=== PATIENT | female | born 1950 | race Two or more races ===

== ENCOUNTER 2017-04-10 21:05 | Emergency (ER) | payer MEDICARE, MEDICAID ==
[~2017-04-10] VITALS: Ht 149.9 cm; Wt 45.4 kg
[2017-04-10 21:11] VITALS: BP 132/64
[2017-04-10] MEDS ORDERED: DIATR MEGLU/DIATRIZOATE SODIUM 30 ML BOTTLE (GASTROGRAPHIN) ONE (21:18)
== END 2017-04-10 21:29 | disposition home or self-care (01) ==
LOC: ER 21:06
DX: Z43.1 Encounter for attention to gastrostomy (principal); E03.9 Hypothyroidism, unspecified; D64.9 Anemia, unspecified; E11.9 Type 2 diabetes mellitus without complications
CPT/HCPCS: 74000-TC; A4606; Q9963; Z7610

== ENCOUNTER 2017-09-15 18:09 | Inpatient (IN) | payer MEDICAID, MEDICARE, OTHER ==
[~2017-09-15] VITALS: Ht 162.6 cm; Wt 46.4 kg
--- NOTE | 2017-09-15 18:40 | NUR ---
[facility] FOR POSSIBLE GI BLEED D/T LOW HGB-7.2. PT IS CONFUSED, NOTED WITH TRACH-CUFFED, GT. PT NOTED WITH BILATERAL ARM SCRATCHES, OLD SCABS. PT PLACED ON CONT CARDIAC AND POX MONITORING. ALL NEEDS ARE ATTENDED, KEPT WARM AND COMFORTABLE. PENDING ER MD EVALUATION
[2017-09-15 19:12] LABS: EOSINOPHILS % (AUTO) 7.2 % (0.0-6.0); HEMATOCRIT 24 % (33-45); HEMOGLOBIN 7.9 g/dL (11.5-14.8); LYMPHOCYTES % (AUTO) 11.3 % (20.0-44.0); MEAN CORPUSCULAR HEMOGLOBIN 28 PG (26.0-33.0); MEAN CORPUSCULAR HGB CONC 33 g/dl (31.0-36.0); MEAN CORPUSCULAR VOLUME 85 fL (82-100); MONOCYTES % (AUTO) 8.5 % (2.0-12.0); NEUTROPHILS % (AUTO) 72.6 % (43.0-81.0); PLATELET COUNT (AUTO) 147 /CMM (150-450); RDW COEFFICIENT OF VARIATION 15.8 (11.5-15.0); RED BLOOD CELL COUNT(AUTO) 2.86 MIL/uL (4.0-5.2); WHITE BLOOD COUNT (AUTO) 6.6 K/uL (4.3-11.0)
[2017-09-15 19:13] LABS: BASOPHILS % (AUTO) 0.4 % (0.0-2.0); EOSINOPHILS # (AUTO) 0.5 /CMM (0.0-0.7); LYMPHOCYTES # (AUTO) 0.7 /CMM (0.8-4.8); MONOCYTES # (AUTO) 0.6 /CMM (0.1-1.30); NEUTROPHILS # (AUTO) 4.8 /CMM (1.8-8.9)
[2017-09-15 19:22] LABS: CALCIUM, SERUM 8.1 mg/dL (8.5-10.1); CREATININE 0.5 mg/dL (0.6-1.3); POTASSIUM 5.1 mmol/L (3.5-5.1)
--- NOTE | 2017-09-15 19:23 | NUR ---
REPORT GIVEN DEANNE RAMIREZ
[2017-09-15 19:26] LABS: INR 1.06 (0.87-1.13)
[2017-09-15 19:27] LABS: BILIRUBIN,DIRECT 0.2 mg/dL (0.0-0.2); BILIRUBIN,TOTAL 0.6 mg/dL (0.2-1.0); TOTAL PROTEIN, SERUM 6.4 g/dL (6.4-8.2)
--- NOTE | 2017-09-15 21:15 | NUR ---
GI MD AT BEDSIDE
--- NOTE | 2017-09-15 23:03 | NUR ---
PT IS GOING TO 324-2. CALLING REPORT TO MS.
--- NOTE | 2017-09-15 23:13 | NUR ---
REPORT GIVEN TO ASHLEY HERRERA
--- NOTE | 2017-09-15 23:25 | NUR ---
TELE/RN NOTES RECEIVED PT. FROM ER VIA Caption DataNEY. PT. IS AWAKE, ALERT AND ORIENTED TO SELF. BREATHING EVEN AND UNLABORED ON ROOM AIR. NO SOB, RESPIRATORY DISTRESS OR S/S OF PAIN NOTED AT THIS TIME. PT. HAS A CAPPED TRACH PRESENT AND INTACT. PT. WITH LEFT HAND 20 GAUGE IV SALINE LOCK PRESENT, PATENT AND INTACT. ORIENTED PT. TO ROOM. PLACED EXTERNAL DIESEL POWERPLANT MECHANIC ON PT. CURRENT RHYTHM SINUS RHYTHM HR 83. PT. WITH G-TUBE PRESENT, PATENT AND INTACT. BED LOCKED AND IN LOWEST POSITION, SIDE RAILS UP X3, BED ALARM ON, CALL LIGHT WITHIN REACH. AWAITING ADMISSION ORDERS. WILL CONTINUE TO MONITOR.
[2017-09-16] VITALS (7 sets, daily range): BP systolic 121–141; BP diastolic 50–71
[2017-09-16] MEDS ORDERED: ZOLPIDEM TARTRATE 5 MG TABLET PO PRN
[2017-09-16] MEDS ORDERED: HYDROCODONE/APAP 5/325MG 1 EACH TABLET PO PRN
[2017-09-16] MEDS ORDERED: MAGNESIUM HYDROXIDE 30 ML UDC PO PRN
[2017-09-16] MEDS ORDERED: MAG HYDROX/AL HYDROX/SIMETH 30 ML UDC PO PRN
[2017-09-16] MEDS ORDERED: PANTOPRAZOLE 40 MG VIAL IV SCH
[2017-09-16] MEDS ORDERED: ONDANSETRON HCL/PF 4 MG/2 ML VIAL IVP PRN
[2017-09-16 01:19] LABS: SERUM AMMONIA 126 umol/L (11-32)
[2017-09-16 01:21] LABS: IRON, SERUM 25 ug/dl (50-175); TOTAL IRON BINDING CAPACITY 271 ug/dl (250-450)
[2017-09-16] MEDS ORDERED: PANTOPRAZOLE 40 MG VIAL ONE (01:53)
[2017-09-16] MEDS ORDERED: DEXTROSE 50%-WATER 50 ML DISP.SYRIN IV PRN (02:00)
[2017-09-16] MEDS: IV D5/0.45 NACL 1,000 ML IV PRN ×2 (02:12→17:27)
[2017-09-16] MEDS ORDERED: RIFA550T (03:57)
[2017-09-16] MEDS ORDERED: LEVE1000 GT (03:57)
[2017-09-16] MEDS ORDERED: INSU100V27 SQ (03:57)
[2017-09-16] MEDS ORDERED: MAGN400O21 GT (03:57)
[2017-09-16] MEDS ORDERED: BISA10SU21 RC (03:57)
[2017-09-16] MEDS ORDERED: BACL10TA GT (03:57)
[2017-09-16] MEDS ORDERED: GABA100C GT (03:57)
[2017-09-16] MEDS ORDERED: ASPI-605 PEG (03:57)
[2017-09-16] MEDS ORDERED: IBUP100O18 GT (03:57)
[2017-09-16] MEDS ORDERED: ZONI100C6 GT (03:57)
[2017-09-16] MEDS ORDERED: ALBU2.5V11 (03:57)
[2017-09-16] MEDS ORDERED: LACT10SO PO (03:57)
[2017-09-16] MEDS ORDERED: NA P133E RC (03:57)
[2017-09-16] MEDS ORDERED: INSU100V7 SQ (03:57)
[2017-09-16] MEDS ORDERED: METO25TA6 GT (03:57)
[2017-09-16] MEDS ORDERED: POTA20TA83 GT (03:57)
[2017-09-16] MEDS ORDERED: TRAM50TA2 GT (03:57)
--- NOTE | 2017-09-16 04:40 | NUR ---
TELE/RN NOTES NOTIFIED EPIC PEPPER CUTTER DR. WATSON PT. IS PULLING ON HER G-TUBE, TRACH AND IV ACCESS. PER MD WATSON NEW ORDER: BILATERAL SOFT WRIST RESTRAINTS. WILL CARRY OUT ORDER. WILL CONTINUE TO MONITOR.
[2017-09-16] MEDS: BLOOD SUGAR DIAGNOSTIC 1 EACH STRIP IN SCH ×4 (06:04→23:08)
--- NOTE | 2017-09-16 06:29 | NUR ---
TELE/RN NOTES PT. IS LYING IN BED AWAKE, ALERT AND ORIENTED TO SELF. BREATHING EVEN AND UNLABORED ON ROOM AIR. NO SOB, RESPIRATORY DISTRESS OR S/S OF PAIN NOTED AT THIS TIME. PT. HAS A CAPPED TRACH PRESENT AND INTACT. PT. WITH LEFT HAND 20 GAUGE PERIPHERAL IV PRESENT, PATENT AND INTACT ADMINISTERING TO PT. D5 1/2 NS @ 75 ML/HR. PT. WITH EXTERNAL WEB INTERFACE DEVELOPER CURRENT RHYTHM SINUS RHYTHM HR 85. PT. WITH BILATERAL SOFT WRIST RESTRAINTS PRESENT AND INTACT. PT. WITH G-TUBE PRESENT, PATENT AND INTACT. ALL PT. NEEDS MET. BED LOCKED AND IN LOWEST POSITION, SIDE RAILS UP X3, BED ALARM ON, CALL LIGHT WITHIN REACH. WILL ENDORSE TO DAYSHIFT NURSE FOR CONTINUITY OF CARE.
--- NOTE | 2017-09-16 07:39 | NUR ---
RN OPENING NOTES RECEIVED PATIENT IN BED RESTING, RESPONSIVE. ORIENTED TO SELF ONLY. NO ACUTE DISTRESS, NO SOB NOTED. NO S/S OF PAIN OR DISCOMFORT. TRACH IN PLACE, CAPPED. ON TELEMONITORING SR 80. IV SITE INTACT AND PATENT. GTUBE IN PLACE. BILATERAL WRIST SOFT RESTRAINTS IN PLACE, WILL CHECKED EXTREMITIES EVERY HOUR NEEDED. KEPT PATIENT SAFE AND COMFORTABLE. BED IN LOCKED LOW POSITION, SEMIFOWLERS, SIDERAILS UPX2, CALL LIGHT IN REACH. WILL CONTINUE TO MONITOR ACCORDINGLY.
[2017-09-16] MEDS ORDERED: NA PHOS,M-B/NA PHOS,DI-BA 1 EA ENEMA RC PRN (10:30)
[2017-09-16] MEDS ORDERED: MAGNESIUM HYDROXIDE 30 ML UDC GT SCH (10:30)
[2017-09-16] MEDS ORDERED: BISACODYL SUPP (10 MG) 10 MG/SUPP.RECT SUPP.RECT RC PRN (10:30)
[2017-09-16] MEDS ORDERED: ZOLPIDEM TARTRATE 5 MG TABLET GT PRN (10:48)
[2017-09-16 11:11] LABS: INR 1.13 (0.87-1.13)
[2017-09-16] MEDS ORDERED: INSULIN ASPART/LISPRO 100 UNIT/ML CARTRIDGE SQ PRN (11:30)
[2017-09-16 11:32] LABS: POTASSIUM 3.5 mmol/L (3.5-5.1)
[2017-09-16 11:33] LABS: BILIRUBIN,DIRECT 0.3 mg/dL (0.0-0.2); CREATININE 0.5 mg/dL (0.6-1.3); PHOSPHORUS 2.7 mg/dL (2.5-4.9)
[2017-09-16 11:35] LABS: ALBUMIN 1.9 g/dL (3.4-5.0); CREATINE KINASE MB 3.6 ng/mL (0-3.6); MAGNESIUM 1.8 mg/dL (1.8-2.4)
[2017-09-16 11:36] LABS: THYROID STIMULATING HORMONE 0.626 uIU/mL (0.358-3.74); TOTAL PROTEIN, SERUM 6.1 g/dL (6.4-8.2)
[2017-09-16 12:15] LABS: EOSINOPHILS # (AUTO) 0.3 /CMM (0.0-0.7); HEMATOCRIT 21 % (33-45); LYMPHOCYTES # (AUTO) 0.5 /CMM (0.8-4.8); MONOCYTES # (AUTO) 0.3 /CMM (0.1-1.30); RDW COEFFICIENT OF VARIATION 15.3 (11.5-15.0)
[2017-09-16] MEDS: IBUPROFEN SUSP 100 MG/5 ML UDC GT SCH ×2 (12:19→17:14)
[2017-09-16] MEDS: LACTULOSE 10 G/15 ML UDC (PYXIS) GT SCH ×2 (12:19→22:23)
[2017-09-16] MEDS: ZONISAMIDE 100 MG CAPSULE GT SCH ×2 (12:20→22:23)
[2017-09-16] MEDS: GABAPENTIN 100 MG CAPSULE GT SCH ×3 (12:20→17:10)
[2017-09-16] MEDS: ASPIRIN 81 MG TAB.CHEW GT SCH (12:20)
[2017-09-16] MEDS: BACLOFEN (10 MG) 10 MG TABLET GT SCH ×2 (12:20→17:09)
[2017-09-16] MEDS: TRAMADOL HCL 50 MG TABLET GT SCH ×2 (12:21→22:23)
[2017-09-16 12:24] LABS: BASOPHILS % (AUTO) 0.9 % (0.0-2.0); EOSINOPHILS % (AUTO) 8.1 % (0.0-6.0); HEMOGLOBIN 7.1 g/dL (11.5-14.8); LYMPHOCYTES % (AUTO) 14.4 % (20.0-44.0); MEAN CORPUSCULAR HEMOGLOBIN 28 PG (26.0-33.0); MEAN CORPUSCULAR HGB CONC 33 g/dl (31.0-36.0); MEAN CORPUSCULAR VOLUME 84 fL (82-100); MONOCYTES % (AUTO) 7.9 % (2.0-12.0); NEUTROPHILS # (AUTO) 2.7 /CMM (1.8-8.9); NEUTROPHILS % (AUTO) 68.7 % (43.0-81.0); PLATELET COUNT (AUTO) 131 /CMM (150-450); RED BLOOD CELL COUNT(AUTO) 2.54 MIL/uL (4.0-5.2); WHITE BLOOD COUNT (AUTO) 3.8 K/uL (4.3-11.0)
[2017-09-16] MEDS: METOPROLOL TARTRATE 25 MG TABLET GT SCH ×2 (12:26→17:13)
[2017-09-16] MEDS: ALBUTEROL FS 2.5 MG/3 ML VIAL.NEB IH SCH ×4 (13:00→23:30)
--- NOTE | 2017-09-16 14:04 | NUR ---
RN NOTES VERIFIED WITH DR HORAN DO SCRAPPING FIRST BEFORE ELIMITE CREAM
[2017-09-16] MEDS ORDERED: ANESTHESIA TRAY IN PYXIS 1 EA TRAY MC ONE (15:30)
--- NOTE | 2017-09-16 19:30 | NUR ---
RN CLOSING NOTES NO SIGNIFICANT CHANGE IN PATIENT'S CONDITION. PATIENT IN BED RESTING, RESPONSIVE. NO ACUTE DISTRESS, NO SOB NOTED. NO S/S OF PAIN OR DISCOMFORT. ALL NEEDS ATTENDED AND PROVIDED. KEPT PATIENT SAFE AND COMFORTABLE. RESTRAINTS ON FOR SAFETY, CHECKED EVERY 15MINS AND EVERY 2HRS NEEDED, CIRCULATION WNL. BED IN LOW, LOCKED POSITION, SIDERAILS UPX2, SEMIFOWLERS, CALL LIGHT IN REACH. ENDORSED TO NIGHT RN FOR YUAN.
--- NOTE | 2017-09-16 19:45 | NUR ---
MS RN NOTES RECEIVED ON BED A/O X1,CONFUSED, AT BEDSIDE.WITH TRACH CAPPED.SALINE LOCK OUT.ON BILATERAL SOFT RESTRAINT,TRYING TO PULL OUT TRACH,IV TUBINGS.TRANSFERRED TO ROOM 329,SUSPECTED SCABIES,WITH RASHES NOTED ON BOTH HANDS.ISOLATION PRECAUTION OBSERVED.NPO STATUS.POSSIBLE EGD TOMORROW.
[2017-09-16] MEDS: LEVETIRACETAM SOL (5 ML) 100 MG/ML UDC GT SCH ×2 (22:24→22:30)
[2017-09-16] MEDS ORDERED: SUCRALFATE 1 G/10 ML UDC ONE (22:27)
[2017-09-16] MEDS: SUCRALFATE 1 G/10 ML UDC GT SCH (22:28)
[2017-09-16] MEDS: INSULIN DETEMIR 100 UNIT/ML CARTRIDGE SQ SCH (23:00)
[2017-09-17] MEDS: IBUPROFEN SUSP 100 MG/5 ML UDC GT SCH ×4 (00:33→17:58)
--- NOTE | 2017-09-17 00:42 | NUR ---
MS RN NOTES STILL AWAKE,AMBIEN 5MG /GT GIVEN
[2017-09-17] MEDS: ALBUTEROL FS 2.5 MG/3 ML VIAL.NEB IH SCH ×6 (03:30→23:41)
--- NOTE | 2017-09-17 04:00 | NUR ---
MS RN NOTES SLEEPING,KEPT WARM AND COMFORTABLE.
[2017-09-17] MEDS: LACTULOSE 10 G/15 ML UDC (PYXIS) GT SCH ×3 (05:00→22:11)
[2017-09-17] MEDS: TRAMADOL HCL 50 MG TABLET GT SCH ×3 (05:31→22:12)
[2017-09-17] MEDS: BLOOD SUGAR DIAGNOSTIC 1 EACH STRIP IN SCH ×3 (05:39→18:21)
[2017-09-17] MEDS: INSULIN REGULAR, HUMAN 100 UNIT/ML 3 ML VIAL SQ PRN (05:45)
--- NOTE | 2017-09-17 07:06 | NUR ---
MS RN NOTES NO CHANGE IN STATUS.KEPT ON ISOLATION FOR POSSIBLE SCABIES,AWAITING SCRAPING BY ID.IVF INFUSING,BILATERAL SOFT WRIST RESTRAINTS IN USED.CALL LIGHT IN REACH.WILL ENDORSE TO DAY NURSE FOR YUAN.
[2017-09-17 08:00] VITALS: BP 144/49
--- NOTE | 2017-09-17 08:05 | NUR ---
MS RN OPENING NOTE RECEIVED BEDSIDE SBAR REPORT. PATIENT IS ON CONTACT ISOLATION. BILATERAL SOFT RESTRAINS ON BILATERAL UPPER EXTREMITIES. PATIENT IS ATTEMPTING TO REMOVE THE TRACH AND PULLING OUT THE IV CATHETER. RESTRAINTS ARE CHECKED. FUNCTIONAL ALIGNMENT OF THE LIMBS IS MAINTAINED. A PATIENT IS NON-VERBAL, RESPONSIVE NATALIA TO LIGHT PAIN, DISORIENTED. NO S/S OF PAIN/DISCOMFORT. CHEST IS RISING EQUALLY BILATERALLY. CAPPED TARCH IS PRESENT. PATIENT IS IN BED. BED IS LOCKED, IN LOWEST POSITION, SIDE RAILS UP X3, BED ALARM IS ON. CALL LIGHT WITHIN REACH. PATIENT EDUCATED TO USE THE CALL LIGHT TO CALL FOR ASSISTANCE. ALL NEEDS ARE MET. PATIENT REPOSITIONED FOR COMFORT. WILL ROUND FREQUENTLY TO ASSESS FOR NEEDS. WILL CONTINUE TO ASSESS/MONITOR THROUGHOUT THE SHIFT.
--- NOTE | 2017-09-17 08:15 | NUR ---
SEVERAL MEDICATIONS NOT ADMINISTERED BY THE PREVIOUS SHIFT. DOCUMENTED NON-ADMINISTERED TO RID OF THE RED NON-ADMINISTERED REMINDERS FROM THE EMAR.
--- NOTE | 2017-09-17 08:40 | NUR ---
RT NOTE PATIENT RECEIVED IN STABLE CONDITION WITH TRACH CAP. PATIENT RECEIVED ON ROOM AIR WITH SPO2 AT 97%. NO SIGNS OF RESPIRATORY DISTRESS NOTED. TRACH IS PATENT AND SECURE. AMBU BAG AND BACK UP TRACH AT BEDSIDE. WILL CONTINUE TO MONITOR. Addendum: 09/17/17 at 1404 by RASTA ADDISON RT Amended: Links added.
[2017-09-17] MEDS ORDERED: MAGNESIUM CITRATE 296 ML BOTTLE PO ONE (09:00)
[2017-09-17] MEDS: SUCRALFATE 1 G/10 ML UDC GT SCH ×4 (09:12→22:18)
[2017-09-17] MEDS: LEVETIRACETAM SOL (5 ML) 100 MG/ML UDC GT SCH ×2 (09:12→22:11)
[2017-09-17] MEDS: ASPIRIN 81 MG TAB.CHEW GT SCH (09:13)
[2017-09-17] MEDS: BACLOFEN (10 MG) 10 MG TABLET GT SCH ×2 (09:13→17:58)
[2017-09-17] MEDS: METOPROLOL TARTRATE 25 MG TABLET GT SCH ×2 (09:13→17:58)
[2017-09-17] MEDS: PANTOPRAZOLE 40 MG VIAL IV SCH ×2 (09:13→17:57)
[2017-09-17] MEDS: GABAPENTIN 100 MG CAPSULE GT SCH ×3 (09:13→17:58)
[2017-09-17] MEDS ORDERED: PEG 3350/NA SULF,BICARB,CL/KCL 4,000 ML BOTTLE PO ONE (10:00)
--- NOTE | 2017-09-17 10:59 | NUR ---
INFECTIONS DISEASE NURSE AT THE BEDSIDE. ASSISTING TO SCRAPE THE PATIENT AND TEST FOR SCABIES.
[2017-09-17] MEDS: IV D5/0.45 NACL 1,000 ML IV PRN (12:50)
[2017-09-17] MEDS ORDERED: IVERMECTIN 3 MG TABLET PO ONE (14:30)
[2017-09-17 16:14] VITALS: BP 119/70
--- NOTE | 2017-09-17 17:50 | NUR ---
PATIENT IS REPORTED POSITIVE FOR SCABIES
--- NOTE | 2017-09-17 18:31 | NUR ---
MS RN CLOSING NOTE PATIENT IS ON CONTACT ISOLATION FOR CONFIRMED SCABIES. BILATERAL SOFT RESTRAINS ON BILATERAL UPPER EXTREMITIES. PATIENT IS ATTEMPTING TO REMOVE THE TRACH AND PULLING OUT THE IV CATHETER. RESTRAINTS ARE CHECKED. FUNCTIONAL ALIGNMENT OF THE LIMBS IS MAINTAINED. A PATIENT IS NON-VERBAL, RESPONSIVE NATALIA TO LIGHT PAIN, DISORIENTED. NO S/S OF PAIN/DISCOMFORT. CHEST IS RISING EQUALLY BILATERALLY. CAPPED TARCH IS PRESENT. PATIENT IS IN BED. BED IS LOCKED, IN LOWEST POSITION, SIDE RAILS UP X3, BED ALARM IS ON. CALL LIGHT WITHIN REACH. PATIENT EDUCATED TO USE THE CALL LIGHT TO CALL FOR ASSISTANCE. ALL NEEDS ARE MET. PATIENT REPOSITIONED FOR COMFORT. WILL ENDORSE TO THE TREE TRIMMER FOR YUAN
--- NOTE | 2017-09-17 19:00 | NUR ---
RN OPENING NOTE PATIENT IN BED, AWAKE, ALERT ONLY TO SELF. RECEIVING IV HYDRATION ORDERED, NOTED TO HAVE A CAPPED TRACH AND WITH GTUBE IN PLACE, PATENT AND INTACT. ALL PATIENT'S NEEDS ATTENDED TO AT THIS TIME. SOFT WRIST RESTRAINTS ON THE PATIENT. WILL CONTINUE TO MONITOR.
[2017-09-17 20:00] VITALS: BP 159/66
[2017-09-17] MEDS ORDERED: NA PHOS,M-B/NA PHOS,DI-BA 1 EA ENEMA RC PRN (22:00)
[2017-09-17] MEDS: INSULIN DETEMIR 100 UNIT/ML CARTRIDGE SQ SCH (22:00)
[2017-09-17] MEDS: ZONISAMIDE 100 MG CAPSULE GT SCH (22:18)
[2017-09-18] VITALS (12 sets, daily range): BP systolic 111–169; BP diastolic 42–74
[2017-09-18] MEDS: BLOOD SUGAR DIAGNOSTIC 1 EACH STRIP IN SCH ×4 (01:50→18:47)
[2017-09-18] MEDS: ALBUTEROL FS 2.5 MG/3 ML VIAL.NEB IH SCH ×6 (03:39→23:41)
[2017-09-18] MEDS: LACTULOSE 10 G/15 ML UDC (PYXIS) GT SCH ×3 (05:00→21:50)
[2017-09-18] MEDS: TRAMADOL HCL 50 MG TABLET GT SCH ×3 (05:00→21:52)
[2017-09-18] MEDS: IBUPROFEN SUSP 100 MG/5 ML UDC GT SCH ×4 (06:00→18:43)
[2017-09-18] MEDS: Z GUARD REMEDY 2 OZ OINT TP PRN (06:22)
[2017-09-18] MEDS: IV D5/0.45 NACL 1,000 ML IV PRN (07:03)
--- NOTE | 2017-09-18 07:20 | NUR ---
RN CLOSING NOTES PATIENT CONTINUES TO BE ON SOFT RESTRAINTS ON BILATERAL WRISTS, IN NO ACUTE DISTRESS, NO SOB NOTED, BREATHING EVEN AND UNLABORED, CONTINUES TO RECEIVE IV HYDRATION ORDERED VIA RAC IV PERIPHERAL LINE. WILL GIVE REPORT TO AM NURSE FOR CONTINUITY OF CARE.
[2017-09-18] MEDS: SUCRALFATE 1 G/10 ML UDC GT SCH ×4 (07:30→21:50)
[2017-09-18] MEDS: LEVETIRACETAM SOL (5 ML) 100 MG/ML UDC GT SCH ×2 (09:00→21:50)
[2017-09-18] MEDS: ASPIRIN 81 MG TAB.CHEW GT SCH (09:00)
[2017-09-18] MEDS: GABAPENTIN 100 MG CAPSULE GT SCH ×3 (09:00→16:47)
[2017-09-18] MEDS: BACLOFEN (10 MG) 10 MG TABLET GT SCH ×2 (09:00→16:45)
[2017-09-18] MEDS ORDERED: CLONIDINE HCL 0.1MG/24H PTWK 1 EA PATCH TD SCH (09:00)
[2017-09-18] MEDS: METOPROLOL TARTRATE 25 MG TABLET GT SCH ×2 (09:00→16:45)
[2017-09-18] MEDS: PANTOPRAZOLE 40 MG VIAL IV SCH ×2 (09:28→16:40)
[2017-09-18] MEDS ORDERED: PERMETHRIN 5% CRM 60 GM TUBE TP ONE (10:30)
--- NOTE | 2017-09-18 10:54 | NUR ---
WOUND CARE CONSULT: PT BEING PREPPED FOR EGD AT THIS TIME. PER NURSING DOCUMENTATION PT HAS SACRAL SCARRING(SEEN IN ADMISSION PHOTO) AND INCONTINENCE WITH PERINEAL EXCORIATION, PRESENT ON ADMISSION. PT NOTED TO BE SCRATCHING HER SKIN PER NURSING STAFF. ALL SKIN PROTECTION MEASURES IN PLACE AND DISCUSSED WITH NURSING STAFF. LOW AIRLOSS BED TO BE PLACED (AMY ISOFLEX). Z GUARD IN USE. IN AGREEMENT WITH PLAN OF CARE. Addendum: 09/18/17 at 1059 by JOSE VEGA WNDNU CORRECTION: PT HAVING COLONOSCOPY PREP AT THIS TIME.
[2017-09-18 12:23] LABS: BASOPHILS % (AUTO) 0.6 % (0.0-2.0); EOSINOPHILS # (AUTO) 0.2 /CMM (0.0-0.7); EOSINOPHILS % (AUTO) 6.5 % (0.0-6.0); HEMATOCRIT 21 % (33-45); LYMPHOCYTES # (AUTO) 0.6 /CMM (0.8-4.8); LYMPHOCYTES % (AUTO) 18.3 % (20.0-44.0); MEAN CORPUSCULAR HEMOGLOBIN 27 PG (26.0-33.0); MEAN CORPUSCULAR HGB CONC 33 g/dl (31.0-36.0); MEAN CORPUSCULAR VOLUME 83 fL (82-100); MONOCYTES # (AUTO) 0.3 /CMM (0.1-1.30); MONOCYTES % (AUTO) 9.2 % (2.0-12.0); NEUTROPHILS # (AUTO) 2.2 /CMM (1.8-8.9); NEUTROPHILS % (AUTO) 65.4 % (43.0-81.0); PLATELET COUNT (AUTO) 119 /CMM (150-450); RDW COEFFICIENT OF VARIATION 16.6 (11.5-15.0); RED BLOOD CELL COUNT(AUTO) 2.47 MIL/uL (4.0-5.2); WHITE BLOOD COUNT (AUTO) 3.4 K/uL (4.3-11.0)
[2017-09-18 12:35] LABS: HEMOGLOBIN 6.7 g/dL (11.5-14.8)
[2017-09-18 14:15] LABS: BAND % (MANUAL) 2 % (0.0-5.0); EOSINOPHILS % (MANUAL) 2 % (0-4); LYMPHOCYTES % (MANUAL) 22 % (16-48); MONOCYTES % (MANUAL) 2 % (0-11.0); NEUTROPHILS % (MANUAL) 72 (42-76)
--- NOTE | 2017-09-18 19:20 | NUR ---
RN OPENING NOTES RECEIVED PT IN BED, AWAKE, ALERT TO SELF, SOFT WRIST RESTRAINTS IN PLACE, BED PLACED IN LOW POSITION AND LOCKED IN PLACE. PATIENT RECEIVING GTUBE FEEDING ORDERED, TOLERATING WELL AT THIS TIME. PT HAS IV PERIPHERAL LINE ON RAC G#20, INTACT AND PATENT. ALL PATIENT'S NEEDS ATTENDED TO AT THIS TIME. BED PLACED IN LOW POSITION. WILL CONTINUE TO MONITOR.
[2017-09-18] MEDS: GLYTROL 1,000 ML BAG GT PRN (19:23)
--- NOTE | 2017-09-18 19:40 | NUR ---
RN NOTES: PATIENT RESTING IN BED. NONLABORED BREATHING NOTED ON ROOM AIR, CLOSED TRACH, NO FACIAL GRIMACING NOTED. IV SITE ON RIGHT FA PATENT AND INTACT. PATIENT RESUMED ON TUBE FEEDINGS, JUST RESTARTED AT 40 ML/HOUR TO CHECK TOLERABILITY. IV FLUIDS TO BE DISCONTINUED ONCE PATIENT ABLE TO TOLERATE FEEDING. PER VLADIMIR MARCANO, COMPENSATION AND BENEFITS ADMINISTRATOR, PATIENT TO RESUME FEEDING WITH GLYTROL AT 60ML/HOUR WITH IV FLUIDS TO BE DISCONTINUED ONCE FEEDING TOLERATED. PER DR CERON, COLONOSCOPY AND EGD NOT PERFORMED TODAY TILL PATIENT IS TO BE TREATED WITH EMILITE. PER DR HORAN TO BE GIVEN AT NIGHT. SPOKE WITH JOSE D, PHARMACY. PER DR HORAN, PATIENT TO RECEIVE 1 UNIT PRBC, BLOOD WAS PICKED UP FROM PHARMACY AT 1750, HOWEVER, UNABLE TO SCAN THE RED BLOOD BANK ID, LAB NOTIFIED AND BLOOD RETURNED AT 1810, PER SOC, BLOOD TO BE PICKED UP AT 2000, NEXT SHIFT NOTIFIED. CLONIDINE HELD IN THE MORNING DUE TO DECREASED BP, RESTRAINTS REORDERED PER DR HORAN, PATIENT CHANGED AND TURNED Q 2 HOURS, PROVIDED WITH CARE, NEEDS ATTENDED, NO SIGNS OF DISTRESS ENDORSED TO NEXT SHIFT
--- NOTE | 2017-09-18 20:17 | NUR ---
RN NOTE PT STARTED ON BLOOD TRANSFUSION, AFEBRILE WITH STABLE VITAL SIGNS. WILL CONTINUE TO MONITOR.
[2017-09-18] MEDS: ZONISAMIDE 100 MG CAPSULE GT SCH (21:50)
[2017-09-18] MEDS: INSULIN DETEMIR 100 UNIT/ML CARTRIDGE SQ SCH (22:42)
--- NOTE | 2017-09-18 23:20 | NUR ---
RN NOTE BLOOD TRANSFUSION COMPLETED. PATIENT AFEBRILE WITH STABLE VITAL SIGNS, NO HIVES, NO SOB NOTED. WILL CONTINUE TO MONITOR.
[2017-09-19] MEDS: IBUPROFEN SUSP 100 MG/5 ML UDC GT SCH ×4 (00:19→18:11)
[2017-09-19] MEDS: BLOOD SUGAR DIAGNOSTIC 1 EACH STRIP IN SCH ×4 (00:54→18:17)
[2017-09-19] MEDS: INSULIN REGULAR, HUMAN 100 UNIT/ML 3 ML VIAL SQ PRN ×2 (01:09→06:10)
[2017-09-19 01:23] LABS: BASOPHILS % (AUTO) 0.9 % (0.0-2.0); EOSINOPHILS # (AUTO) 0.2 /CMM (0.0-0.7); EOSINOPHILS % (AUTO) 4.9 % (0.0-6.0); HEMATOCRIT 28 % (33-45); HEMOGLOBIN 9.2 g/dL (11.5-14.8); LYMPHOCYTES # (AUTO) 0.6 /CMM (0.8-4.8); LYMPHOCYTES % (AUTO) 13.6 % (20.0-44.0); MEAN CORPUSCULAR HEMOGLOBIN 28 PG (26.0-33.0); MEAN CORPUSCULAR HGB CONC 33 g/dl (31.0-36.0); MEAN CORPUSCULAR VOLUME 84 fL (82-100); MONOCYTES # (AUTO) 0.5 /CMM (0.1-1.30); MONOCYTES % (AUTO) 12.2 % (2.0-12.0); NEUTROPHILS # (AUTO) 2.9 /CMM (1.8-8.9); NEUTROPHILS % (AUTO) 68.4 % (43.0-81.0); PLATELET COUNT (AUTO) 124 /CMM (150-450); RDW COEFFICIENT OF VARIATION 15.4 (11.5-15.0); RED BLOOD CELL COUNT(AUTO) 3.28 MIL/uL (4.0-5.2); WHITE BLOOD COUNT (AUTO) 4.2 K/uL (4.3-11.0)
[2017-09-19] MEDS: ALBUTEROL FS 2.5 MG/3 ML VIAL.NEB IH SCH ×5 (03:51→19:49)
--- NOTE | 2017-09-19 04:10 | NUR ---
RN NOTE PATIENT TOLERATING G-TUBE FEEDING WELL, NO EPISODE OF NAUSEA/VOMITING NOTED AT THIS TIME. RECEIVED NEW ORDER TO D/C PREVIOUS IV HYDRATION ORDER. ALL ORDERS NOTED AND CARRIED OUT. WILL CONTINUE TO MONITOR PATIENT.
[2017-09-19] MEDS: TRAMADOL HCL 50 MG TABLET GT SCH ×3 (04:33→22:33)
[2017-09-19] MEDS: LACTULOSE 10 G/15 ML UDC (PYXIS) GT SCH ×3 (04:34→21:00)
--- NOTE | 2017-09-19 07:20 | NUR ---
RN NOTES; PATIENT RESTING IN BED,CAPPED TRACH, WITH NONLABORED BREATHING ON ROOM AIR. IV ON RIGHT FOREARM PATENT AND INTACT. BED IN LOWEST LOCKED POSITION.CALL LIGHT WITHIN REACH. WILL CONTINUE TO MONITOR. NO FACIAL GRIMACING NOTED
--- NOTE | 2017-09-19 07:25 | NUR ---
RN CLOSING NOTE PATIENT IN BED, ALERT TO SELF, CONTINUES TO RECEIVE G-TUBE FEEDING ORDERED AND TOLERATING WELL. BILATERAL SOFT WRIST RESTRAINTS ON PATIENT, BED PLACED IN LOW POSITION AND LOCKED IN PLACE. ALL PATIENT'S NEEDS ATTENDED TO AT THIS TIME. WILL ENDORSE TO MORNING SHIFT NURSE FOR CONTINUITY OF CARE.
[2017-09-19 08:00] VITALS: BP 158/74
--- NOTE | 2017-09-19 08:20 | NUR ---
RN NOTES: SPOKE TO BETTY FROM PHARMACY REGARDING MOTRIN RESTOCKING IN OMNICELL. MOTRIN NOT ADMINISTERED AT 0600 DUE TO LACK OF MOTRIN IN OMNICELL
[2017-09-19] MEDS: SUCRALFATE 1 G/10 ML UDC GT SCH ×4 (08:40→22:34)
[2017-09-19] MEDS: LEVETIRACETAM SOL (5 ML) 100 MG/ML UDC GT SCH ×2 (08:40→22:33)
[2017-09-19] MEDS: GABAPENTIN 100 MG CAPSULE GT SCH ×3 (08:41→16:55)
[2017-09-19] MEDS: BACLOFEN (10 MG) 10 MG TABLET GT SCH ×2 (08:41→16:56)
[2017-09-19] MEDS: METOPROLOL TARTRATE 25 MG TABLET GT SCH ×2 (08:42→16:55)
[2017-09-19] MEDS: PANTOPRAZOLE 40 MG VIAL IV SCH ×2 (08:46→17:04)
[2017-09-19] MEDS: ASPIRIN 81 MG TAB.CHEW GT SCH (09:00)
--- NOTE | 2017-09-19 10:57 | NUR ---
RN NOTES: DR HORAN INFORMED THAT PATIENT IS ON BACK ON TUBE FEEDING PER ORDERS, TAKING MEDICATIONS PER GTUBE. HE ORDERED TO DISCONTINUE CLONIDINE PATCH
[2017-09-19 16:00] VITALS: BP 153/65
[2017-09-19] MEDS: GLYTROL 1,000 ML BAG GT PRN (17:03)
--- NOTE | 2017-09-19 19:30 | NUR ---
RN NOTES RECEIVED PT. AWAKE, CONFUSED, ON BILATERAL SOFT WRIST RESTRAINTS, CIRCULATION ON BILATERAL UPPER EXTREMITIES ARE GOOD, G-TUBE FEEDING , GLYTROL @ 60ML/HR, NO RESIDUAL NOTED, SIDERAILSUPX2, CONTINUE TO MONITOR
[2017-09-19 20:00] VITALS: BP 155/65
[2017-09-19] MEDS: ZONISAMIDE 100 MG CAPSULE GT SCH (22:34)
[2017-09-19] MEDS: INSULIN DETEMIR 100 UNIT/ML CARTRIDGE SQ SCH (22:44)
--- NOTE | 2017-09-20 | NUR ---
RN NOTES MOTRIN 600MG SUSPENSION WAS NOT GIVEN, DRUG IS NOT AVAILABLE EVEN IN THE NITE LOCKER
[2017-09-20] MEDS: BLOOD SUGAR DIAGNOSTIC 1 EACH STRIP IN SCH ×5 (00:09→23:43)
[2017-09-20] MEDS: INSULIN REGULAR, HUMAN 100 UNIT/ML 3 ML VIAL SQ PRN ×3 (00:15→12:50)
[2017-09-20] MEDS: ALBUTEROL FS 2.5 MG/3 ML VIAL.NEB IH SCH ×6 (01:21→20:30)
[2017-09-20] MEDS: TRAMADOL HCL 50 MG TABLET GT SCH ×3 (05:18→22:12)
[2017-09-20] MEDS: LACTULOSE 10 G/15 ML UDC (PYXIS) GT SCH ×3 (05:18→22:11)
[2017-09-20] MEDS: IBUPROFEN SUSP 100 MG/5 ML UDC GT SCH ×5 (05:18→23:53)
--- NOTE | 2017-09-20 06:29 | NUR ---
RN NOTES AWAKE , MORNING CARE RENDERED, G-TUBE FEEDING RUNNING- NO RESIDUAL NOTED, CALL LIGHT WITHIN REACH, SIDERAILSUPX2 PT. NEEDS ATTENDED
[2017-09-20 08:00] VITALS: BP 168/94
--- NOTE | 2017-09-20 08:00 | NUR ---
RN NOTES' RECEIVED PATENT IN THE BED ISOLATION OF SCABIES. PATIENT CONFUSED, ON TRACHEA , NO RESPIRATORY DISTRESS, V/S TAKEN STABLE . GLYTROL 60 ML/HR G-TUBE FEEDING. NO RESIDUAL, PLACEMENT CHECKED, MEDICATION ADMINISTERED VIA G-TUBE, PATIENT ON SOFT WRIST RESTRAIN CHECKED CIRCULATION, PATIENT INCOMITANT ASSIST TURN ANS REPOSITION Q 2 HR, IV LINE ON RIGHT AC AREA INTACT , CALL LIGHT WITHIN TO REACH, SAFETY PRECAUTION MAINTAINED ALL THE TIME.
[2017-09-20] MEDS: LEVETIRACETAM SOL (5 ML) 100 MG/ML UDC GT SCH ×2 (09:03→22:11)
[2017-09-20] MEDS: SUCRALFATE 1 G/10 ML UDC GT SCH ×4 (09:03→22:11)
[2017-09-20] MEDS: GABAPENTIN 100 MG CAPSULE GT SCH ×3 (09:03→18:16)
[2017-09-20] MEDS: ASPIRIN 81 MG TAB.CHEW GT SCH (09:03)
[2017-09-20] MEDS: METOPROLOL TARTRATE 25 MG TABLET GT SCH ×2 (09:04→18:17)
[2017-09-20] MEDS: PANTOPRAZOLE 40 MG VIAL IV SCH ×2 (09:04→18:16)
[2017-09-20] MEDS: BACLOFEN (10 MG) 10 MG TABLET GT SCH ×2 (09:04→18:16)
--- NOTE | 2017-09-20 12:00 | NUR ---
RN NOTES BS-150 MG/DL, COVERAGE GIVEN, NEXT TO THE BED, SCHEDULED MEDICATION ADMINISTERED. CALL LIGHT WITHIN TO REACH, CONTINUED MONITORING.
[2017-09-20] MEDS: GLYTROL 1,000 ML BAG GT PRN (13:08)
[2017-09-20 16:00] VITALS: BP 153/53
--- NOTE | 2017-09-20 16:00 | NUR ---
RN NOTES PATIENT IN THE BED, NO ACUTE RESPIRATORY DISTRESS, ASSIST TURN AND REPOSITION, CALL LIGHT WITHIN TO REACH, CONTINUED MONITORING.
--- NOTE | 2017-09-20 17:00 | NUR ---
RN NOTES PATIENT REFUSED IV ACCESS, MRSA OF NARES SWAB TAKEN, CALLED LAB FOR FACILITY MAINTENANCE SUPERVISOR. PATIENT LYING IN THE BED, NO ACUTE DISTRESS, NO RESPIRATORY DISTRESS, CALL LIGHT WITHIN TO REACH, SAFETY PRECAUTION MAINTAINED ALL THE TIME. Addendum: 09/20/17 at 2041 by JASPAL FERNANDEZ RN RN NOTES ABOVE NOTES A WRONG PATIENT EATERY.
--- NOTE | 2017-09-20 18:00 | NUR ---
RN NOTES BS-79 MG/DL NO COVERAGE GIVEN, SCHEDULED MEDICATION ADMINISTERED VIA G-TUBE, V/S TAKEN STABLE, ASSIST TURN AND REPOSITION Q2 HR, CALL LIGHT WITHIN TO REACH, SAFETY PRECAUTION MAINTAINED ALL THE TIME, PATIENT HAS A SOFT WRIST RESTRAIN, CHECKED FOR CIRCULATION Q 2 HR, CONTINUED MONITORING.
--- NOTE | 2017-09-20 18:30 | NUR ---
RN NOTES PATIENT STABLE AT THIS TIME, ENDORSED ONCOMING NURSE FOR CONTINUATION OF CARE.
--- NOTE | 2017-09-20 19:40 | NUR ---
RN INITIAL NOTES RECEIVED PT LAYING IN BED WITH HOB ELEVATED. ON ISOLATION FOR SCABIES, CONTACT PRECAUTIONS TAKEN. AWAKE AND RESPONSIVE. RESPIRATIONS ARE EVEN AND UNLABORED, NOT IN ANY ACUTE DISTRESS NOTED. CURRENTLY HAS A CAPPED TRACH. NO FACIAL GRIMACING OR MOANING NOTED. GT INTACT, NO RESIDUAL NOTED. FLUSED GT WITH 300CC OF WATER AND IS PATENT. CURRENTLY ON SOFT WRIST RESTRAINTS, NO SKIN INJURIES NOTED. RIGHT FOREARM IV NOTED TO BE INFILTRATED. WILL CONTINUE TO MONITOR PT THROUGHOUT SHIFT FOR CONTINUITY OF CARE. REMINDED PT TO USE CALL LIGHT WHEN ASSISTANCE IS NEEDED, CALL LIGHT IS LEFT WITHN REACH.
[2017-09-20 20:00] VITALS: BP 118/52
[2017-09-20 22:00] VITALS: BP 130/64
--- NOTE | 2017-09-20 22:05 | NUR ---
RN NOTES GOT AN ORDER FOR MIDLINE INSERTION-ORDER NOTED AND CARRIED OUT
[2017-09-20] MEDS: ZONISAMIDE 100 MG CAPSULE GT SCH (22:12)
[2017-09-20] MEDS: INSULIN DETEMIR 100 UNIT/ML CARTRIDGE SQ SCH (22:33)
[2017-09-21] MEDS: ALBUTEROL FS 2.5 MG/3 ML VIAL.NEB IH SCH ×7 (00:13→23:47)
[2017-09-21] MEDS: BLOOD SUGAR DIAGNOSTIC 1 EACH STRIP IN SCH ×3 (05:07→17:01)
[2017-09-21] MEDS: IBUPROFEN SUSP 100 MG/5 ML UDC GT SCH ×3 (05:07→17:02)
[2017-09-21] MEDS: LACTULOSE 10 G/15 ML UDC (PYXIS) GT SCH ×3 (05:07→21:59)
[2017-09-21] MEDS: TRAMADOL HCL 50 MG TABLET GT SCH ×3 (05:07→21:58)
[2017-09-21] MEDS: INSULIN REGULAR, HUMAN 100 UNIT/ML 3 ML VIAL SQ PRN ×2 (05:48→22:11)
--- NOTE | 2017-09-21 06:51 | NUR ---
RN CLOSING NOTES ALL DUE MEDS GIVEN, NEEDS MET AND RENDERED. PT IS RESPONSIVE. RESPIRATIONS ARE EVEN AND UNLABORED, NOT IN ANY ACUTE DISTRESS NOTED. PT HAS A CAPPED TRACH AND TOLERATING WELL. CURRENTLY ON CONTACT ISOLATION FOR SCABIES. AJ MIDLINE PLACED THIS AM, INTACT AND PATENT. DRESSING KEPT CLEAN AND DRY. NO FACIAL GRIMACING OR MOANING NOTED. PT CURRENTLY ON TF AND TOLERATING WELL WITH NO RESIDUAL. NO S/SX OF HYPO/HYPERGLYCEMIA NOTED. WILL ENDORSE TO NEXT SHIFT FOR CONTINUITY OF CARE.
--- NOTE | 2017-09-21 07:20 | NUR ---
RN NOTES PT IS LAYING DOWN IN BED, RESTING. PT ON RA, RESPIRATIONS ARE EVEN AND UNLABORED. AJ MIDLINE IS INTACT AND SL. G-TUBE IS IN PLACE AND RUNNING GLYTROL @ 60ML/HR. SOFT WRIST RESTRAINTS ARE IN PLACE, NO IRRITATION NOTED. SAFETY MEASURES ARE IN PLACE, CALL LIGHT IS IN REACH. WILL CONTINUE TO MONITOR.
[2017-09-21 08:00] VITALS: BP 131/51
[2017-09-21] MEDS: ASPIRIN 81 MG TAB.CHEW GT SCH (08:14)
[2017-09-21] MEDS: BACLOFEN (10 MG) 10 MG TABLET GT SCH ×2 (08:14→16:51)
[2017-09-21] MEDS: METOPROLOL TARTRATE 25 MG TABLET GT SCH ×2 (08:14→16:51)
[2017-09-21] MEDS: GABAPENTIN 100 MG CAPSULE GT SCH ×3 (08:14→16:51)
[2017-09-21] MEDS: LEVETIRACETAM SOL (5 ML) 100 MG/ML UDC GT SCH ×2 (08:14→21:59)
[2017-09-21] MEDS: SUCRALFATE 1 G/10 ML UDC GT SCH ×4 (08:14→21:59)
[2017-09-21] MEDS: PANTOPRAZOLE 40 MG VIAL IV SCH ×2 (08:14→16:51)
[2017-09-21] MEDS: GLYTROL 1,000 ML BAG GT PRN (11:04)
[2017-09-21 16:00] VITALS: BP 140/62
--- NOTE | 2017-09-21 19:23 | NUR ---
RN OPENING NOTES PT RESTING IN BED. PT CONFUSED. PT RESTING IN BED. NO APPARENT S/S OF PAIN, DISTRESS, OR SOB AT THIS TIME. PT HAS A RIGHT UPPER ARM MIDLINE IV, INTACT AND PATENT. PT HAS GTUBE FEEDING GLYTROL @60ML/HR, PT TOLERATING WELL. SAFETY PRECAUTIONS IN PLACE, BED IN LOW, LOCKED POSITION, X3 SIDERAILS UP. CALL LIGHT WITHIN REACH. WILL CONTINUE TO MONITOR.
[2017-09-21 20:00] VITALS: BP 149/57
[2017-09-21] MEDS: ZONISAMIDE 100 MG CAPSULE GT SCH (21:58)
[2017-09-21] MEDS: INSULIN DETEMIR 100 UNIT/ML CARTRIDGE SQ SCH (22:10)
[2017-09-22] MEDS: BLOOD SUGAR DIAGNOSTIC 1 EACH STRIP IN SCH ×4 (01:02→17:13)
[2017-09-22] MEDS: IBUPROFEN SUSP 100 MG/5 ML UDC GT SCH ×4 (01:02→17:13)
[2017-09-22] MEDS: INSULIN REGULAR, HUMAN 100 UNIT/ML 3 ML VIAL SQ PRN ×2 (01:21→05:41)
[2017-09-22] MEDS: ALBUTEROL FS 2.5 MG/3 ML VIAL.NEB IH SCH ×5 (02:58→19:30)
[2017-09-22] MEDS: LACTULOSE 10 G/15 ML UDC (PYXIS) GT SCH ×3 (05:24→20:52)
[2017-09-22] MEDS: TRAMADOL HCL 50 MG TABLET GT SCH ×3 (05:25→20:52)
--- NOTE | 2017-09-22 06:46 | NUR ---
RN CLOSING NOTES PT RESTING IN BED. PT CONFUSED [place] SPEAKER. NO APPARENT S/S OF PAIN, DISTRESS, OR SOB AT THIS TIME. PT HAS BILATERAL SOFT WRIST RESTRAINTS. PT HAS AJ MIDLINE #18 INTACT AND PATENT. PT HAS GTUBE FEEDING GLYTROL @60ML/HR, PT TOLERATING WELL. SAFETY PRECAUTIONS IN PLACE. WILL ENDORSE TO DAY SHIFT NURSE FOR CONTINUITY OF CARE.
[2017-09-22] MEDS: GLYTROL 1,000 ML BAG GT PRN (06:57)
[2017-09-22 08:00] VITALS: BP 149/58
--- NOTE | 2017-09-22 08:24 | NUR ---
MS RN: OPENING NOTE RECEIVED PT A/OX1. ON CONTACT ISOLATION FOR SCABIES. TREATMENT ALREADY DONE. ON CAPPED TRACH. INCONTINENT. ON DIAPER. BEDREST. ON SOFT WRIST RESTRAINTS. CHECKED ORDERED. ON GLYTROL FEEDING AT 60ML/HR FROM G-TUBE. SITE CLEAR AND PATENT. AJ MIDLINE #18. HL. NO IV FLUIDS RUNNING. NO AM LABS. SCHEDULED FOR ENDOSCOPY/ COLONOSCOPY 09/23/17. RESTING COMFORTABLY IN BED. CALL LIGHT WITHIN REACH.
[2017-09-22] MEDS: METOPROLOL TARTRATE 25 MG TABLET GT SCH ×2 (09:25→17:00)
[2017-09-22] MEDS: BACLOFEN (10 MG) 10 MG TABLET GT SCH ×2 (09:25→16:00)
[2017-09-22] MEDS: GABAPENTIN 100 MG CAPSULE GT SCH ×3 (09:25→16:00)
[2017-09-22] MEDS: SUCRALFATE 1 G/10 ML UDC GT SCH ×4 (09:25→22:00)
[2017-09-22] MEDS: PANTOPRAZOLE 40 MG VIAL IV SCH ×2 (09:25→16:00)
[2017-09-22] MEDS: ASPIRIN 81 MG TAB.CHEW GT SCH (09:25)
[2017-09-22] MEDS: LEVETIRACETAM SOL (5 ML) 100 MG/ML UDC GT SCH ×2 (09:25→20:52)
[2017-09-22] MEDS ORDERED: NA PHOS,M-B/NA PHOS,DI-BA 1 EA ENEMA RC PRN (11:00)
[2017-09-22] MEDS ORDERED: MAGNESIUM CITRATE 296 ML BOTTLE PO ONE ×2 (11:00→14:00)
[2017-09-22] MEDS ORDERED: PEG 3350/NA SULF,BICARB,CL/KCL 4,000 ML BOTTLE PO ONE (11:00)
[2017-09-22] MEDS: IV D5/ 0.9% NACL 1,000 ML IV SCH (11:31)
[2017-09-22 12:27] LABS: BASOPHILS % (AUTO) 0.6 % (0.0-2.0); EOSINOPHILS # (AUTO) 0.3 /CMM (0.0-0.7); EOSINOPHILS % (AUTO) 7.1 % (0.0-6.0); HEMATOCRIT 28 % (33-45); HEMOGLOBIN 9.3 g/dL (11.5-14.8); LYMPHOCYTES # (AUTO) 0.4 /CMM (0.8-4.8); MEAN CORPUSCULAR HEMOGLOBIN 28 PG (26.0-33.0); MEAN CORPUSCULAR HGB CONC 33 g/dl (31.0-36.0); MEAN CORPUSCULAR VOLUME 84 fL (82-100); MONOCYTES # (AUTO) 0.5 /CMM (0.1-1.30); MONOCYTES % (AUTO) 9.5 % (2.0-12.0); NEUTROPHILS # (AUTO) 3.5 /CMM (1.8-8.9); NEUTROPHILS % (AUTO) 73.8 % (43.0-81.0); PLATELET COUNT (AUTO) 102 /CMM (150-450); RDW COEFFICIENT OF VARIATION 16.4 (11.5-15.0); RED BLOOD CELL COUNT(AUTO) 3.36 MIL/uL (4.0-5.2); WHITE BLOOD COUNT (AUTO) 4.8 K/uL (4.3-11.0)
[2017-09-22 12:33] LABS: ALBUMIN 1.9 g/dL (3.4-5.0); BILIRUBIN,TOTAL 0.8 mg/dL (0.2-1.0); CALCIUM, SERUM 8.2 mg/dL (8.5-10.1); CREATININE 0.5 mg/dL (0.6-1.3); POTASSIUM 3.2 mmol/L (3.5-5.1); TOTAL PROTEIN, SERUM 6.3 g/dL (6.4-8.2)
--- NOTE | 2017-09-22 13:42 | NUR ---
MAG CITRATE NEEDED TO BE REENTERED BY PHARMACY DUE TO AWAITING ARRIVAL.
[2017-09-22] MEDS ORDERED: IV NS 0.9% 500 ML IV ONE (14:30)
--- NOTE | 2017-09-22 14:35 | NUR ---
STOPPED G-TUBE FEEDING. NPO WITH MEDICATIONS PER MD ESQUIVEL ORDER. STARTED ADMINSITERING MAG CITRATE AND GOLYTELY FOR SCHDULED EGD AND COLONOSCOPY.
[2017-09-22] MEDS: POTASSIUM CL. PREMIX PERIPHER. 50 ML IV SCH ×4 (14:59→18:00)
[2017-09-22 16:00] VITALS: BP 112/50
--- NOTE | 2017-09-22 18:39 | NUR ---
MS RN: CLOSING NOTE PT GIVEN ALL MEDICATIONS VIA G-TUBE. A/OX1. NO ADVERSE REACTIONS NOTED. NO SOB NOTED. NO PAIN NOTED. ON CAPPED TRACH ROOM AIR. INCONTINENT. ON PREP GOLYTELY AND MAG CITRATE FOR SCHEDULED EDG AND COLONOSCOPY 09/23/17. CONSENT SIGNED. NPO. G-TUBE FEEDING STOPPED WHEN PREP STARTED. ON SOFT BLE RESTRAINTS. TAKEN OFF AND CLEANED ORDERED. AJ MIDLINE RUNNING D5 NS AT 75ML/HR. SITE CLEAR. NO REDNESS OR BLEEDING NOTED. INSULIN GIVEN PER SLIDING SCALE. ON CONTACT ISOLATION FOR SCABIES. KEPT CLEAN AND DRY. TURNED AND REPOSITIONED Q2 HOURS. RESTING COMFORTABLY IN BED. CALL LIGHT WITHIN REACH.
--- NOTE | 2017-09-22 19:25 | NUR ---
RN OPENING NOTE PT RESTING IN BED. PT IS [place] SPEAKER. PT IS CONFUSED. NO APPARENT S/S OF PAIN OR DISTRESS NOTED AT THIS TIME. PT HAS A RIGHT UPPER ARM MIDLINE RUNNING D5 NS AT 75ML/HR. PT TOLERATING FLUID WELL. PER DAY SHIFT NURSE PT IS PREPPING FOR SCHEDULED EGD AND COLONOSCOPY 09/23/17. PT GTUBE FEEDING HAS BEEN STOPPED AND PT IS ON GOLYTELY AND MAG CITRATE. SAFETY PRECAUTIONS IN PLACE. BED IN LOW, LOCKED POSITION. [id number] UP. PT IS HAS BILATERAL SOFT WRIST RESTRAINTS. WILL CONTINUE TO MONITOR.
[2017-09-22 20:45] VITALS: BP 133/66
[2017-09-22] MEDS: INSULIN DETEMIR 100 UNIT/ML CARTRIDGE SQ SCH (22:00)
[2017-09-22] MEDS: ZONISAMIDE 100 MG CAPSULE GT SCH (22:00)
[2017-09-23] MEDS: ALBUTEROL FS 2.5 MG/3 ML VIAL.NEB IH SCH ×6 (00:20→20:42)
[2017-09-23] MEDS: BLOOD SUGAR DIAGNOSTIC 1 EACH STRIP IN SCH ×5 (00:46→23:26)
[2017-09-23] MEDS: IV D5/ 0.9% NACL 1,000 ML IV SCH ×2 (00:47→13:32)
[2017-09-23] MEDS: LACTULOSE 10 G/15 ML UDC (PYXIS) GT SCH ×3 (04:41→21:04)
[2017-09-23] MEDS: TRAMADOL HCL 50 MG TABLET GT SCH ×3 (04:41→21:04)
[2017-09-23] MEDS: IBUPROFEN SUSP 100 MG/5 ML UDC GT SCH ×5 (05:01→23:27)
--- NOTE | 2017-09-23 06:57 | NUR ---
RN CLOSING NOTE PT RESTING IN BED. PT IS [place] SPEAKER. PT IS CONFUSED. NO APPARENT S/S OF PAIN OR DISTRESS NOTED AT THIS TIME. PT HAS A RIGHT UPPER ARM MIDLINE RUNNING D5 NS AT 75ML/HR. PT TOLERATING FLUID WELL. PER DAY SHIFT NURSE PT IS PREPPING FOR SCHEDULED EGD AND COLONOSCOPY 09/23/17 AT 1PM. MEDS HAVE BEEN HELD DUE TO PROCEDURE. SAFETY PRECAUTIONS IN PLACE. BED IN LOW, LOCKED POSITION. [id number] UP. PT IS HAS BILATERAL SOFT WRIST RESTRAINTS. WILL ENDORSE TO DAY SHIFT NURSE FOR CONTINUITY OF CARE.
[2017-09-23] MEDS: SUCRALFATE 1 G/10 ML UDC GT SCH ×4 (07:30→21:04)
--- NOTE | 2017-09-23 07:40 | NUR ---
RN OPENING NOTES RECEIVED PT. A/OX1, PT IS CONFUSED. NO S/S OF RESPIRATORY DISTRESS OR SOB. PT DOES NOT APPEAR TO BE IN PAIN AT THIS MOMENT. TRACH PRESENT AND PLUGGED, NO VENT SUPPORT. SOFT WRIST RESTRAINTS PRESENT, DUE TO PT'S FREQUENT ATTEMPTS TO PULL LINES. PT IS TO HAVE EGD TODAY AT [address] ALCALA. CONSENTS SIGNED AND FILED IN CHART. PT IS NPO, GT FEEDING STOPPED. SAFETY MEASURES IN PLACE, CALL LIGHT WITHIN REACH. WILL CONTINUE TO MONITOR.
[2017-09-23 07:44] LABS: BASOPHILS % (AUTO) 0.3 % (0.0-2.0); EOSINOPHILS % (AUTO) 0.6 % (0.0-6.0); HEMATOCRIT 25 % (33-45); HEMOGLOBIN 8.2 g/dL (11.5-14.8); LYMPHOCYTES # (AUTO) 0.4 /CMM (0.8-4.8); LYMPHOCYTES % (AUTO) 9.2 % (20.0-44.0); MEAN CORPUSCULAR HEMOGLOBIN 28 PG (26.0-33.0); MEAN CORPUSCULAR HGB CONC 34 g/dl (31.0-36.0); MEAN CORPUSCULAR VOLUME 83 fL (82-100); MONOCYTES # (AUTO) 0.4 /CMM (0.1-1.30); MONOCYTES % (AUTO) 9.9 % (2.0-12.0); NEUTROPHILS # (AUTO) 3.4 /CMM (1.8-8.9); PLATELET COUNT (AUTO) 100 /CMM (150-450); RDW COEFFICIENT OF VARIATION 16.6 (11.5-15.0); RED BLOOD CELL COUNT(AUTO) 2.97 MIL/uL (4.0-5.2); WHITE BLOOD COUNT (AUTO) 4.2 K/uL (4.3-11.0)
[2017-09-23 08:00] VITALS: BP 159/68
[2017-09-23 08:00] LABS: CALCIUM, SERUM 7.6 mg/dL (8.5-10.1); CREATININE 0.5 mg/dL (0.6-1.3); POTASSIUM 3.9 mmol/L (3.5-5.1)
[2017-09-23] MEDS: PANTOPRAZOLE 40 MG VIAL IV SCH ×2 (08:16→16:59)
[2017-09-23] MEDS: LEVETIRACETAM SOL (5 ML) 100 MG/ML UDC GT SCH ×2 (09:00→21:04)
[2017-09-23] MEDS: METOPROLOL TARTRATE 25 MG TABLET GT SCH ×2 (09:00→17:17)
[2017-09-23] MEDS: GABAPENTIN 100 MG CAPSULE GT SCH ×3 (09:00→16:59)
[2017-09-23] MEDS: ASPIRIN 81 MG TAB.CHEW GT SCH (09:00)
[2017-09-23] MEDS: BACLOFEN (10 MG) 10 MG TABLET GT SCH ×2 (09:00→16:59)
--- NOTE | 2017-09-23 09:30 | NUR ---
RN NOTES AM PO MEDICATIONS HELD DUE TO NPO STATUS.
--- NOTE | 2017-09-23 11:30 | NUR ---
RN NOTES PT TAKEN TO OR FOR EGD/COLONOSCOPY.
--- NOTE | 2017-09-23 14:00 | NUR ---
RN NOTES PT RETURNED FROM OR. VSS, BREATHING EVEN AND UNLABORED. PT APPEARS SLEEPY/LETHARGIC. POST-OP ORDERS RECEIVED, FAXED TO PHARMACY, AND PLACED IN CHART. NOON MEDICATIONS HELD DUE TO PT'S ABSENCE FROM UNIT. NOON ACCU CHECK FOUND BS OF 167, NO COVERAGE GIVEN HOWEVER DUE TO HALT OF GT FEEDING. GT FEEDING TO RESUME AT 1700. WILL CONTINUE TO MONITOR.
[2017-09-23 16:00] VITALS: BP 141/62
[2017-09-23] MEDS: INSULIN REGULAR, HUMAN 100 UNIT/ML 3 ML VIAL SQ PRN ×2 (17:28→23:33)
--- NOTE | 2017-09-23 19:26 | NUR ---
RN CLOSING NOTES PT IN BED RESTING, AT BEDSIDE. NO S/S OF RESPIRATORY DISTRESS OR SOB. PT DOES NOT APPEAR TO BE IN PAIN. PT IS S/P EGD EARLIER TODAY 09/23/17. POST OP ORDERS SIGNED, PLACED IN CHART AND FAXED TO PHARMACY. ALL PT NEEDS ANTICIPATED AND MET. SAFETY MEASURES IN PLACE, CALL LIGHT WITHIN REACH. WILL ENDORSE TO BOILER INSPECTOR FOR YUAN.
--- NOTE | 2017-09-23 19:50 | NUR ---
MS RN INITIAL NOTE S PT IS IN BED AWAKE, CONFUSED. NO SIGNS OF SOB OR DISTRESS. BREATHING EVENLY AND UNLABORED ON RA. TRACH IS CAPPED, NO VENT SUPPORT. BILATERAL WRIST RESTRAINTS PRESENT, WILL FOLLOW PROTOCOL. BED IS IN LOW AND LOCKED POSITION. WILL CONTINUE TO MONITOR PT
[2017-09-23 20:49] VITALS: BP 150/62
[2017-09-23] MEDS: ZONISAMIDE 100 MG CAPSULE GT SCH (21:04)
[2017-09-23] MEDS: INSULIN DETEMIR 100 UNIT/ML CARTRIDGE SQ SCH (21:09)
[2017-09-24] MEDS: ALBUTEROL FS 2.5 MG/3 ML VIAL.NEB IH SCH ×6 (00:29→20:26)
[2017-09-24] MEDS: IV D5/ 0.9% NACL 1,000 ML IV SCH ×2 (02:33→17:21)
[2017-09-24] MEDS: TRAMADOL HCL 50 MG TABLET GT SCH ×3 (04:16→23:04)
[2017-09-24] MEDS: LACTULOSE 10 G/15 ML UDC (PYXIS) GT SCH ×3 (04:16→23:04)
[2017-09-24] MEDS: GLYTROL 1,000 ML BAG GT PRN (04:20)
--- NOTE | 2017-09-24 05:00 | NUR ---
ORAL CARE COMPLETED USING ORAL CARE SUCTION KIT
[2017-09-24] MEDS: IBUPROFEN SUSP 100 MG/5 ML UDC GT SCH ×3 (05:01→17:23)
[2017-09-24] MEDS: BLOOD SUGAR DIAGNOSTIC 1 EACH STRIP IN SCH ×4 (05:01→23:13)
[2017-09-24] MEDS: INSULIN REGULAR, HUMAN 100 UNIT/ML 3 ML VIAL SQ PRN ×4 (05:12→23:11)
--- NOTE | 2017-09-24 06:47 | NUR ---
MS RN CLOSING NOTES PT IS IN BED AWAKE AND CONFUSED. NO SIGNS OF SOB OR DISTRESS, BREATHING EVENLY AND UNLABORED ON RA. ORAL CARE RENDERED. BILATERAL SOFT RESTRAINTS IN PLACE. GTUBE INTACT AND FEEDING AT 60 ML, TOLERATING WELL. IV ACCESS IS INTACT AND PATENT, INFUSING. ALL NEEDS WERE ANTICIPATED AND MET. BED IS IN LOW AND LOCKED POSITION, HEAD OF BED ELEVATED. WILL ENDORSE TO DAY SHIFT
[2017-09-24 08:00] VITALS: BP 142/110
--- NOTE | 2017-09-24 08:00 | NUR ---
MS RN OPENING NOTES PATIENT COMFORTABLY IN BED AWAKE AND CONFUSED. NO SOB NOTED.NO ACUTE DISTRESS NOTED, BREATHING EVENLY AND UNLABORED.IN ACCESS PATENT AND INTACT. BILATERAL SOFT RESTRAINTS IN PLACE. GTUBE INTACT AND FEEDING AT 60 ML, TOLERATING WELL. BED IS IN LOW AND LOCKED POSITION, HOB ELEVATED. CALL LIGHT WITHIN REACH. WILL CONTINUE TO MONITOR ACCORDINGLY.
[2017-09-24] MEDS: SUCRALFATE 1 G/10 ML UDC GT SCH ×4 (08:30→23:03)
[2017-09-24] MEDS: GABAPENTIN 100 MG CAPSULE GT SCH ×3 (08:31→17:22)
[2017-09-24] MEDS: BACLOFEN (10 MG) 10 MG TABLET GT SCH ×2 (08:31→17:23)
[2017-09-24] MEDS: ASPIRIN 81 MG TAB.CHEW GT SCH (08:31)
[2017-09-24] MEDS: LEVETIRACETAM SOL (5 ML) 100 MG/ML UDC GT SCH ×2 (08:31→23:03)
[2017-09-24] MEDS: PANTOPRAZOLE 40 MG VIAL IV SCH ×2 (08:31→17:22)
[2017-09-24] MEDS: METOPROLOL TARTRATE 25 MG TABLET GT SCH ×2 (08:34→17:23)
[2017-09-24] MEDS: Z GUARD REMEDY 2 OZ OINT TP PRN (12:26)
[2017-09-24 16:00] VITALS: BP 139/86
--- NOTE | 2017-09-24 18:30 | NUR ---
MS RN CLOSING NOTES PATIENT COMFORTABLY IN BED EYES CLOSED AND CONFUSED, AROUSABLE. NO ACUTE DISTRESS NOTED. NO SOB NOTED. BREATHING UNLABORED.IN ACCESS PATENT AND INTACT. BILATERAL SOFT RESTRAINTS IN PLACE. GTUBE INTACT AND FEEDING AT 60 ML, TOLERATING WELL. BED IS IN LOW AND LOCKED POSITION, HOB ELEVATED. DUE MEDICATIONS GIVEN, NO ASE NOTED. NEEDS ATTENDED. CALL LIGHT WITHIN REACH. WILL ENDORSE TO [facility]GE FOR CONTINUITY OF CARE.
--- NOTE | 2017-09-24 19:40 | NUR ---
MS/RN RECEIVE PATIENT AWAKE, NON VERBAL, TRACH CAPPED, APPEAR COMFORTABLE, NO SIGNS OF DISTRESS NOTED, PATIENT CLEANED AND REPOSITIONED TO COMFORT.
[2017-09-24 20:20] VITALS: BP 140/65
[2017-09-24] MEDS: ZONISAMIDE 100 MG CAPSULE GT SCH (23:03)
[2017-09-24] MEDS: INSULIN DETEMIR 100 UNIT/ML CARTRIDGE SQ SCH (23:10)
[2017-09-25] MEDS: GLYTROL 1,000 ML BAG GT PRN ×2 (00:21→21:03)
[2017-09-25] MEDS: IBUPROFEN SUSP 100 MG/5 ML UDC GT SCH ×4 (00:21→17:18)
[2017-09-25] MEDS: ALBUTEROL FS 2.5 MG/3 ML VIAL.NEB IH SCH ×6 (00:27→21:15)
[2017-09-25] MEDS: INSULIN REGULAR, HUMAN 100 UNIT/ML 3 ML VIAL SQ PRN ×4 (05:55→23:00)
--- NOTE | 2017-09-25 06:00 | NUR ---
MS/RN STILL SLEEPING, COMFORTABLE, NO DISTRESS NOTED, ALL NEEDS ATTENDED AT THIS TIME. WILL CONTINUE TO MONITOR. MOTRIN NOT ADMINISTERED AT THIS TIME THERE IS NOT ENOUGH STOCK IN THE OMNICELL, WILL ENDORSE.
[2017-09-25] MEDS: IV D5/ 0.9% NACL 1,000 ML IV SCH ×2 (06:03→21:06)
[2017-09-25] MEDS: LACTULOSE 10 G/15 ML UDC (PYXIS) GT SCH ×3 (06:04→21:04)
[2017-09-25] MEDS: TRAMADOL HCL 50 MG TABLET GT SCH ×3 (06:04→21:04)
[2017-09-25] MEDS: BLOOD SUGAR DIAGNOSTIC 1 EACH STRIP IN SCH ×4 (06:12→23:06)
--- NOTE | 2017-09-25 07:00 | NUR ---
MS/RN ENDORSED TO NEXT RN TO GIVE THE MOTRIN.
[2017-09-25 08:00] VITALS: BP 141/76
--- NOTE | 2017-09-25 08:00 | NUR ---
MS RN OPENING NOTES PT COMFORTABLY IN BED EYES OPEN ,CONFUSED. NO SOB NOTED.NO ACUTE DISTRESS NOTED, BREATHING UNLABORED.IN ACCESS INTACT, INFUSING D5NS @75ML/HR. BILATERAL SOFT RESTRAINTS IN PLACE. GTUBE INTACT AND FEEDING AT 60 ML, TOLERATING WELL. SAFE MEASURES IN PLACE. HOB ELEVATED. CALL LIGHT WITHIN REACH. WILL CONTINUE TO MONITOR ACCORDINGLY
[2017-09-25] MEDS: SUCRALFATE 1 G/10 ML UDC GT SCH ×4 (08:39→21:04)
[2017-09-25] MEDS: LEVETIRACETAM SOL (5 ML) 100 MG/ML UDC GT SCH ×2 (08:40→21:04)
[2017-09-25] MEDS: GABAPENTIN 100 MG CAPSULE GT SCH ×3 (08:40→17:19)
[2017-09-25] MEDS: PANTOPRAZOLE 40 MG VIAL IV SCH ×2 (08:40→17:18)
[2017-09-25] MEDS: BACLOFEN (10 MG) 10 MG TABLET GT SCH ×2 (08:40→17:19)
[2017-09-25] MEDS: METOPROLOL TARTRATE 25 MG TABLET GT SCH ×2 (08:41→17:19)
[2017-09-25] MEDS: ASPIRIN 81 MG TAB.CHEW GT SCH (08:41)
[2017-09-25 12:00] VITALS: BP 140/68
[2017-09-25 16:00] VITALS: BP 152/71
--- NOTE | 2017-09-25 18:30 | NUR ---
MS RN OPENING NOTES PT IN BED EYES OPEN ,CONFUSED.RESPONSIVE TO VERBAL AND TACTILE STIMULI. NO ACUTE DISTRESS NOTED, BREATHING UNLABORED. IV ACCESS INTACT, INFUSING D5NS @75ML/HR. BILATERAL SOFT RESTRAINTS IN PLACE, CHECKED WITH GOOD CIRCULATION EVERY 2 HOURS .GTUBE INTACT AND FEEDING AT 60 ML, TOLERATING WELL. DUE MEDICATIONS GIVEN , NO ASE NOTED. REPOSITION ORDERED. SAFE MEASURES IN PLACE. HOB ELEVATED. KEPT COMFORTABLE. NEEDS ATTENDED. CALL LIGHT WITHIN REACH. WILL CONTINUE TO MONITOR ACCORDINGLY. ENDORSED TO STREET LIGHT CLEANER FOR CONTINUITY OF CARE.
--- NOTE | 2017-09-25 19:30 | NUR ---
MS/RN RECEIVE PATIENT, AWAKE, NON VERBAL, APPEAR COMFORTABLE, NO DISTRESS NOTED, HOB ELEVATED, GT FEEDING INFUSING, NO RESIDUAL NOTE, WILL MONITOR.
[2017-09-25 20:00] VITALS: BP 136/54
[2017-09-25] MEDS: ZONISAMIDE 100 MG CAPSULE GT SCH (21:03)
[2017-09-25] MEDS: INSULIN DETEMIR 100 UNIT/ML CARTRIDGE SQ SCH (22:59)
[2017-09-26] MEDS: ALBUTEROL FS 2.5 MG/3 ML VIAL.NEB IH SCH ×7 (00:10→22:57)
[2017-09-26] MEDS: IBUPROFEN SUSP 100 MG/5 ML UDC GT SCH ×5 (01:05→23:52)
--- NOTE | 2017-09-26 05:16 | NUR ---
RT NOTE RECEIVED PATIENT ON ROOM AIR. PATIENT IS TRACHED WITH SEWAGE TREATMENT PLANT OPERATOR. NO SOB NOTED. TX GIVEN, NO ADVERSE REACTIONS NOTED. SUCTION DONE, SMALL THICK YELLOW WHITE SECRETIONS NOTED. PATIENT STABLE T/O SHIFT.
--- NOTE | 2017-09-26 06:30 | NUR ---
MS/RN PATIENT SLEEPING, AROUSABLE, COMFORTABLE, ALL NEEDS ATTENDED AT THIS TIME. WILL CONTINUE TO MONITOR.
[2017-09-26] MEDS: BLOOD SUGAR DIAGNOSTIC 1 EACH STRIP IN SCH ×4 (06:48→23:58)
[2017-09-26] MEDS: TRAMADOL HCL 50 MG TABLET GT SCH ×3 (06:49→20:38)
[2017-09-26] MEDS: SUCRALFATE 1 G/10 ML UDC GT SCH ×4 (06:49→22:23)
[2017-09-26] MEDS: INSULIN REGULAR, HUMAN 100 UNIT/ML 3 ML VIAL SQ PRN ×3 (07:00→18:52)
[2017-09-26] MEDS: LACTULOSE 10 G/15 ML UDC (PYXIS) GT SCH ×3 (07:38→20:39)
--- NOTE | 2017-09-26 07:41 | NUR ---
RN NOTES RECEIVED PATIENT RESTING COMFORTABLY IN BED, EASILY AROUSABLE DURING CARE, NONVERBAL. RESPIRATIONS EVEN AND UNLABORED, IN NO APPARENT PAIN OR DISCOMFORT AT THIS TIME. PATIENT WITH TRACH SHILEY #[address] IV ACCESS TO AJ PATENT AND INTACT NO REDNESS OR INFILTRATION NOTED. PATIENT ON G TUBE FEEDING TOLERATED WELL. SAFETY MEASURES IN PLACE WILL CONTINUE TO MONITOR
[2017-09-26 08:00] VITALS: BP 169/75
[2017-09-26] MEDS: LEVETIRACETAM SOL (5 ML) 100 MG/ML UDC GT SCH ×2 (09:11→20:39)
[2017-09-26] MEDS: ASPIRIN 81 MG TAB.CHEW GT SCH (09:11)
[2017-09-26] MEDS: METOPROLOL TARTRATE 25 MG TABLET GT SCH ×2 (09:12→16:25)
[2017-09-26] MEDS: PANTOPRAZOLE 40 MG VIAL IV SCH ×2 (09:12→16:23)
[2017-09-26] MEDS: BACLOFEN (10 MG) 10 MG TABLET GT SCH ×2 (09:12→16:23)
[2017-09-26] MEDS: GABAPENTIN 100 MG CAPSULE GT SCH ×3 (09:12→16:23)
[2017-09-26] MEDS: IV D5/ 0.9% NACL 1,000 ML IV SCH ×2 (12:37→22:22)
[2017-09-26 16:00] VITALS: BP 157/70
[2017-09-26] MEDS: GLYTROL 1,000 ML BAG GT PRN (16:25)
--- NOTE | 2017-09-26 19:30 | NUR ---
RN OPENING NOTES PATIENT IS SLEEPING IN BED, EASY TO AROUSE, NON VERBAL. VS STABLE. NO SOB NOTED. RESPIRATIONS EVEN AND UNLABORED. NO PAIN OR DISCOMFORT NOTED AT THIS TIME. PATIENT WITH TRACH SHILEY #[address] IV ACCESS TO AJ PATENT AND INTACT, NO REDNESS OR INFILTRATION NOTED. GLYTROL IS RUNNING AT 60 ML/HR. BED IN LOW AND LOCKED POSITION, SIDE RAILSX2. CALL LIGHT WITHIN EASY REACH. WILL CONTINUE TO MONITOR AND ASSESS DURING THE SHIFT.
--- NOTE | 2017-09-26 19:35 | NUR ---
RN NOTES PATIENT RESTING COMFORTABLY IN BED, EASILY AROUSABLE DURING CARE, NONVERBAL. RESPIRATIONS EVEN AND UNLABORED, IN NO APPARENT PAIN OR DISCOMFORT AT THIS TIME. PATIENT WITH TRACH SHILEY #[address] IV ACCESS TO AJ PATENT AND INTACT NO REDNESS OR INFILTRATION NOTED. PATIENT ON G TUBE FEEDING TOLERATED WELL. SAFETY MEASURES IN PLACE ENDORSED TO NEXT SHIFT FOR CONTINUITY OF CARE
[2017-09-26 20:00] VITALS: BP 129/49
[2017-09-26] MEDS: ZONISAMIDE 100 MG CAPSULE GT SCH (22:24)
[2017-09-26] MEDS: INSULIN DETEMIR 100 UNIT/ML CARTRIDGE SQ SCH (22:30)
[2017-09-27] MEDS: INSULIN REGULAR, HUMAN 100 UNIT/ML 3 ML VIAL SQ PRN ×4 (00:01→17:42)
[2017-09-27] MEDS: ALBUTEROL FS 2.5 MG/3 ML VIAL.NEB IH SCH ×6 (03:25→22:42)
--- NOTE | 2017-09-27 03:45 | NUR ---
MS/WIG COMBER; RECEIVED PT REPORTS FROM ASHLEY CARPIO FOR CONTINUITY OF CARE. PT IS NON VERBAL. WITH TRACH WITH REDCAP, GT FEEDING ON PROGRESS NO RESIDUAL WITH BILATERAL SOFT WRIST RESTRAINTS ON. ON CONTACT ISOLATION.
[2017-09-27] MEDS: LACTULOSE 10 G/15 ML UDC (PYXIS) GT SCH ×3 (05:06→21:59)
[2017-09-27] MEDS: TRAMADOL HCL 50 MG TABLET GT SCH ×3 (05:07→21:59)
[2017-09-27] MEDS: IBUPROFEN SUSP 100 MG/5 ML UDC GT SCH ×3 (06:00→17:03)
--- NOTE | 2017-09-27 06:30 | NUR ---
MS/SMALL BRAKE FORM OPERATOR; MOTRIN SUSP. 600MG GT Q6 NOT GIVEN . I FAXED THE ORDER TO NURSING SENIOR GRADUATE ADVISOR AND SHE SAID TO ENDORSE TO THE DAY IT TO THE DAY SHIFT.
[2017-09-27] MEDS: BLOOD SUGAR DIAGNOSTIC 1 EACH STRIP IN SCH ×3 (07:00→17:37)
--- NOTE | 2017-09-27 07:00 | NUR ---
MS/INSPECTOR PLUMBING; BS 210 COVERED WITH REGULAR INSULIN 4 UNITS SQ. IVF ON PROGRESS. WILL ENDORSE TO THE DAY SHIFT . ON CONTACT ISOLATION OBSERVED.
--- NOTE | 2017-09-27 07:15 | NUR ---
RN NOTES PT IS LAYING DOWN IN BED, RESTING COMFORTABLY. PT ON RA, RESPIRATIONS ARE EVEN AND UNLABORED. AJ MIDLINE IS INTACT AND RUNNING D5NS @ 75ML/HR. G-TUBE IS INTACT AND RUNNING GLYTROL @ 60ML/HR. SOFT WRIST RESTRAINTS ARE ON, NO SIGNS OF IRRITATION ON WRISTS. SAFETY MEASURES ARE IN PLACE. WILL CONTINUE TO MONITOR.
[2017-09-27 08:00] VITALS: BP 162/74
[2017-09-27] MEDS: ASPIRIN 81 MG TAB.CHEW GT SCH (08:13)
[2017-09-27] MEDS: GABAPENTIN 100 MG CAPSULE GT SCH ×3 (08:13→17:03)
[2017-09-27] MEDS: BACLOFEN (10 MG) 10 MG TABLET GT SCH ×2 (08:13→17:03)
[2017-09-27] MEDS: LEVETIRACETAM SOL (5 ML) 100 MG/ML UDC GT SCH ×2 (08:13→21:58)
[2017-09-27] MEDS: PANTOPRAZOLE 40 MG VIAL IV SCH ×2 (08:13→17:02)
[2017-09-27] MEDS: SUCRALFATE 1 G/10 ML UDC GT SCH ×4 (08:13→21:59)
[2017-09-27] MEDS: METOPROLOL TARTRATE 25 MG TABLET GT SCH ×2 (08:14→17:04)
[2017-09-27] MEDS: ACETAMINOPHEN 325 MG TABLET PO PRN (08:18)
[2017-09-27] MEDS: GLYTROL 1,000 ML BAG GT PRN (10:33)
[2017-09-27] MEDS: IV D5/ 0.9% NACL 1,000 ML IV PRN (12:09)
[2017-09-27 16:00] VITALS: BP 168/78
--- NOTE | 2017-09-27 18:35 | NUR ---
RN NOTES PT IS LAYING DOWN IN BED, RESTING COMFORTABLY, NO SIGNS OF DISTRESS NOTED. AJ MIDLINE INTACT AND RUNNING D5NS @ 75ML/HR. GLYTROL FEEDING RUNNING THROUGH G-TUBE AT 60ML/HR, NO RESIDUAL. SOFT WRIST RESTRAINTS IN PLACE. ALL MEDS WERE GIVEN ORDERED. 1800 ACCUCHECK 259, 6 UNITS GIVEN. PT KEPT CLEAN AND DRY, BREATHING TREATMENTS GIVEN ORDERED. SAFETY MEASURES ARE IN PLACE, CALL LIGHT IS IN REACH. WILL ENDORSE TO PAN OPERATOR RN FOR CONTINUITY OF CARE.
--- NOTE | 2017-09-27 19:20 | NUR ---
MS/RN OPENING NOTES PT RECEIVED WITH EYES CLOSED. OPENS EYES WITH LIGHT TOUCH. TRACH IS CAPPED. ON ROOM AIR, BREATHING RIKI NAND UNLABORED. IN NO APPARENT DISTRESS. BILATERAL SOFT WRIST RESTRAINTS IN PLACE, EXTREMITIES NOTED WITH GOOD CIRCULATION. AJ MIDLINE PATENT AND INTACT RUNNING IVF ORDERED. GT FEEDING RUNNING GLYTROL ORDERED. BED IN LOW/LOCKED POSITION WITH CALL LIGHT IN REACH. SIDE RAILS UPX3 WITH BED ALARM ON FOR SAFETY. WILL CONTINUE TO MONITOR.
[2017-09-27 20:00] VITALS: BP 146/68
[2017-09-27] MEDS: ZONISAMIDE 100 MG CAPSULE GT SCH (21:59)
[2017-09-27] MEDS: INSULIN DETEMIR 100 UNIT/ML CARTRIDGE SQ SCH (22:07)
[2017-09-28] MEDS: IBUPROFEN SUSP 100 MG/5 ML UDC GT SCH ×4 (00:40→17:41)
[2017-09-28] MEDS: BLOOD SUGAR DIAGNOSTIC 1 EACH STRIP IN SCH ×4 (00:40→17:42)
[2017-09-28] MEDS: INSULIN REGULAR, HUMAN 100 UNIT/ML 3 ML VIAL SQ PRN ×4 (00:50→17:44)
[2017-09-28] MEDS: ALBUTEROL FS 2.5 MG/3 ML VIAL.NEB IH SCH ×6 (03:15→23:35)
[2017-09-28] MEDS: LACTULOSE 10 G/15 ML UDC (PYXIS) GT SCH ×3 (05:00→21:47)
[2017-09-28] MEDS: GLYTROL 1,000 ML BAG GT PRN (05:41)
[2017-09-28] MEDS: TRAMADOL HCL 50 MG TABLET GT SCH ×3 (05:42→21:30)
[2017-09-28] MEDS: IV D5/ 0.9% NACL 1,000 ML IV PRN ×2 (06:25→21:32)
[2017-09-28] MEDS: SUCRALFATE 1 G/10 ML UDC GT SCH ×4 (06:32→21:30)
--- NOTE | 2017-09-28 07:35 | NUR ---
MS/RN CLOSING NOTES PT WITH EYES CLOSED. AROUSABLE. OPENS EYES BUT NONVERBAL. ON ROOM AIR, BREATHING EVEN AND UNLABORED. NO S/S OF PAIN AT THIS TIME. IN NO APPARENT DISTRESS. TRACH REMAINS CAPPED. AJ MIDLINE PATENT AND INTACT RUNNING IVF ORDERED. KEPT PT CLEAN AND DRY. TURNED AND REPOSITIONED Q2H. PT REMAINS IN BILATERAL SOFT WRIST RESTRAINTS. GOOD EXTREMITY CIRCULATION NOTED. RELEASE OR RESTRAINTS PRN. GT FEEDING RUNNING GLYTROL ORDERED. NO RESIDUALS NOTED. BED IN LOW/LOCKED POSITION WITH CALL LIGHT IN REACH. SIDE RAILS UPX2. ISOLATION PRECAUTIONS IMPLEMENTED. ENDORSED TO DAY SHIFT RN YUAN.
[2017-09-28 08:00] VITALS: BP 153/86
--- NOTE | 2017-09-28 08:00 | NUR ---
MS RN NOTES PATIENT RECEIVED RESTING INSIDE ROOM, AWAKE, ALERT, AROUSABLE THROUGH VERBAL AND TACTILE STIMULI., WOULD RESPOND WHEN TOUCHED OR TALKED TO THEN WOULD GO BACK TO SLEEP AFTER A FEW MINUTES NO SOB OR CONGESTION NOTED. NO FACIAL GRIMACE OR ANY INDICATION OF PAIN NOTED. GT IN PLACE, NO BLEEDING OR IRRITATION NOTED ON GT SITE. IV MIDLINE ON RIGHT UPPER ARM. NO BLEEDING, NO SWELLING, NO IRRITATION ON SITE. WILL CONTINUE TO MONITOR.
[2017-09-28] MEDS: BACLOFEN (10 MG) 10 MG TABLET GT SCH ×2 (09:27→17:42)
[2017-09-28] MEDS: ASPIRIN 81 MG TAB.CHEW GT SCH (09:27)
[2017-09-28] MEDS: GABAPENTIN 100 MG CAPSULE GT SCH ×3 (09:27→17:42)
[2017-09-28] MEDS: METOPROLOL TARTRATE 25 MG TABLET GT SCH ×2 (09:27→17:42)
[2017-09-28] MEDS: PANTOPRAZOLE 40 MG VIAL IV SCH ×2 (09:28→17:41)
[2017-09-28] MEDS: LEVETIRACETAM SOL (5 ML) 100 MG/ML UDC GT SCH ×2 (09:28→21:30)
[2017-09-28 16:00] VITALS: BP 167/73
[2017-09-28 17:31] VITALS: BP 167/73
--- NOTE | 2017-09-28 19:00 | NUR ---
MS RN NOTES PATIENT RESTING INSIDE ROOM, LYING ON BED. AROUSABLE THROUGH VERBAL AND TACTILE STIMULI,. PATIENT NON-VERBAL BUT WOULD MAKE EYE CONTACT WHEN SPOKEN TO. NO SOB OR ACUTE DISTRESS NOTED. TRACH CAPPED. PATIENT AFEBRILE, SKIN DRY AND WARM TO TOUCH. IV SITE /MIDLINE IN PLACE ON RIGHT UPPER ARM, INTACT AND PATENT. NO BLEEDING, NO SWELLING NOTED. WILL CONTINUE TO MONITOR. PATIENT KEPT CLEAN, DRY AND COMFORTABLE. PROVIDED WITH CALM, SAFE, HAZARD-FREE ENVIRONMENT. PERICARE PROVIDED. PATIENT ASSISTED TO A COMFORTABLE POSITION Q2 WITH POSITIONING PILLOW. BILATERAL SOFT WRIST RESTRAINTS IN PLACE, SKIN CHECKS PROVIDED, NO NEW SKIN BREAKDOWN NOTED. PATIENT KEPT CLEAN, DRY AND COMFORTABLE. CALL LIGHT PLACED WITHIN EASY REACH
--- NOTE | 2017-09-28 19:30 | NUR ---
MS/RN OPENING NOTES PT RECEIVED RESTING COMFORTABLY IN BED. OPENS EYES. NON VERBAL. TRACH IS CAPPED. BREATHING EVEN AND UNLABORED. NO S/S OF SOB, PAIN OR DISTRESS. AJ MIDLINE PATENT AND INTACT RUNNING IVF ORDERED. GT RUNNING ORDERED. BILATERAL SOFT WRIST RESTRAINTS IN PLACE, EXTREMITIES WITH GOOD CIRCULATION. BED IN LOW/LOCKED POSITION WITH CALL LIGHT IN REACH. SIDE RAILS UPX2. WILL CONTINUE TO MONITOR
[2017-09-28 20:00] VITALS: BP 147/71
[2017-09-28] MEDS: ZONISAMIDE 100 MG CAPSULE GT SCH (21:30)
[2017-09-28] MEDS: INSULIN DETEMIR 100 UNIT/ML CARTRIDGE SQ SCH (21:42)
[2017-09-29] MEDS: BLOOD SUGAR DIAGNOSTIC 1 EACH STRIP IN SCH ×5 (00:47→23:22)
[2017-09-29] MEDS: IBUPROFEN SUSP 100 MG/5 ML UDC GT SCH ×5 (00:47→23:26)
[2017-09-29] MEDS: INSULIN REGULAR, HUMAN 100 UNIT/ML 3 ML VIAL SQ PRN ×5 (01:05→23:26)
[2017-09-29] MEDS: ALBUTEROL FS 2.5 MG/3 ML VIAL.NEB IH SCH ×6 (03:41→22:59)
[2017-09-29] MEDS: LACTULOSE 10 G/15 ML UDC (PYXIS) GT SCH ×3 (05:00→20:26)
[2017-09-29] MEDS: TRAMADOL HCL 50 MG TABLET GT SCH ×3 (05:57→20:26)
[2017-09-29] MEDS: GLYTROL 1,000 ML BAG GT PRN ×2 (05:58→23:16)
[2017-09-29] MEDS: SUCRALFATE 1 G/10 ML UDC GT SCH ×4 (07:17→21:21)
--- NOTE | 2017-09-29 07:37 | NUR ---
MS/RN CLOSING NOTES PT RESTING IN BED, NON VERBAL, OPENS EYES AND MOANS AT TIMES. TRACH CAPPED. ON ROOM AIR, BREATHING EVEN AND UNLABORED. NO S/S OF SOB OR ACUTE DISTRESS. NO S/S OF PAIN. AJ MIDLINE RUNNING IVF ORDERED. GT FEEDING RUNNING ORDERED. NO RESIDUALS NOTED DURING SHIFT. PT BACK ON BILATERAL SOFT WRIST RESTRAINTS DUE TO PT ATTEMPTING TO PULL AT LINES. TURNED/REPOSITIONED Q2H AND HEELS OFFLOADED. ISOLATION PRECAUTIONS IMPLEMENTED. BED IN LOW/LOCKED POSITION WITH CALL LIGHT IN REACH. SIDE RAILS UPX2. ENDORSED TO DAY SHIFT RN YUAN.
[2017-09-29 08:00] VITALS: BP 151/102
[2017-09-29] MEDS: LEVETIRACETAM SOL (5 ML) 100 MG/ML UDC GT SCH ×2 (08:24→20:26)
[2017-09-29] MEDS: PANTOPRAZOLE 40 MG VIAL IV SCH ×2 (08:24→17:19)
[2017-09-29] MEDS: ASPIRIN 81 MG TAB.CHEW GT SCH (08:24)
[2017-09-29] MEDS: BACLOFEN (10 MG) 10 MG TABLET GT SCH ×2 (08:24→17:19)
[2017-09-29] MEDS: METOPROLOL TARTRATE 25 MG TABLET GT SCH ×2 (08:24→17:20)
[2017-09-29] MEDS: GABAPENTIN 100 MG CAPSULE GT SCH ×3 (08:24→17:18)
[2017-09-29] MEDS: IV D5/ 0.9% NACL 1,000 ML IV PRN ×2 (11:57→23:15)
[2017-09-29 12:38] LABS: EOSINOPHILS % (AUTO) 0.2 % (0.0-6.0); HEMATOCRIT 26 % (33-45); HEMOGLOBIN 8.6 g/dL (11.5-14.8); LYMPHOCYTES # (AUTO) 0.6 /CMM (0.8-4.8); LYMPHOCYTES % (AUTO) 6.7 % (20.0-44.0); MEAN CORPUSCULAR HEMOGLOBIN 28 PG (26.0-33.0); MEAN CORPUSCULAR HGB CONC 33 g/dl (31.0-36.0); MEAN CORPUSCULAR VOLUME 85 fL (82-100); MONOCYTES # (AUTO) 0.6 /CMM (0.1-1.30); MONOCYTES % (AUTO) 7.4 % (2.0-12.0); NEUTROPHILS # (AUTO) 7.2 /CMM (1.8-8.9); NEUTROPHILS % (AUTO) 85.7 % (43.0-81.0); PLATELET COUNT (AUTO) 113 /CMM (150-450); RDW COEFFICIENT OF VARIATION 17.7 (11.5-15.0); RED BLOOD CELL COUNT(AUTO) 3.11 MIL/uL (4.0-5.2); WHITE BLOOD COUNT (AUTO) 8.4 K/uL (4.3-11.0)
[2017-09-29 12:46] LABS: CALCIUM, SERUM 7.8 mg/dL (8.5-10.1); CREATININE 0.7 mg/dL (0.6-1.3); POTASSIUM 3.2 mmol/L (3.5-5.1)
[2017-09-29 16:00] VITALS: BP 154/87
--- NOTE | 2017-09-29 18:42 | NUR ---
M/S RN - Notes Received pt in bed awake, non-verbal, no s/s of pain, no apparent distress noted. Pt with trach Shiley, tolerating room air, suctioned and trach care done. IVF D5NS at 75 ml/hr infusing well on the AJ midline with no complications. GTF Glytrol @ 60 ml/hr tolerated well. Aspiration precautions observed. Skin assessment done and documented. Pt turned and repositioned q2h and PRN. Isoflex mattress in place for skin management. All needs attended and met. Contact isolation maintained. Will continue with current plan of care. Still waiting for bed availability at [facility] and [facility]'s congregate facility.
--- NOTE | 2017-09-29 19:30 | NUR ---
RN OPENING NOTES PATIENT IS IN BED, NON VERBAL. PRESENT AT BEDSIDE. VS STABLE. NO SOB NOTED. RESPIRATIONS EVEN AND UNLABORED. NO PAIN OR DISCOMFORT NOTED AT THIS TIME. PATIENT WITH TRACH SHILEY #[address] IV ACCESS TO AJ MIDLINE PATENT AND INTACT, NO REDNESS OR INFILTRATION NOTED. GLYTROL IS RUNNING AT 60 ML/HR. BED IN LOW AND LOCKED POSITION, SIDE RAILSX2. CALL LIGHT WITHIN EASY REACH. WILL CONTINUE TO MONITOR AND ASSESS DURING THE SHIFT.
[2017-09-29 20:00] VITALS: BP 157/85
[2017-09-29] MEDS: ACETAMINOPHEN 325 MG TABLET PO PRN (21:21)
[2017-09-29] MEDS: ZONISAMIDE 100 MG CAPSULE GT SCH (21:21)
[2017-09-29] MEDS: INSULIN DETEMIR 100 UNIT/ML CARTRIDGE SQ SCH (21:28)
[2017-09-29] MEDS ORDERED: INSULIN DETEMIR 100 UNIT/ML CARTRIDGE SQ ONE (21:49)
[2017-09-30] MEDS: ALBUTEROL FS 2.5 MG/3 ML VIAL.NEB IH SCH ×4 (02:58→16:44)
[2017-09-30] MEDS: TRAMADOL HCL 50 MG TABLET GT SCH ×2 (04:49→12:02)
[2017-09-30] MEDS: LACTULOSE 10 G/15 ML UDC (PYXIS) GT SCH ×2 (05:00→12:02)
[2017-09-30] MEDS: IBUPROFEN SUSP 100 MG/5 ML UDC GT SCH ×2 (05:13→12:01)
[2017-09-30] MEDS: BLOOD SUGAR DIAGNOSTIC 1 EACH STRIP IN SCH ×2 (05:26→12:02)
[2017-09-30] MEDS: INSULIN REGULAR, HUMAN 100 UNIT/ML 3 ML VIAL SQ PRN ×2 (05:28→12:09)
--- NOTE | 2017-09-30 07:44 | NUR ---
RN NOTES PATIENT ALERT AND ORIENTED X1, CONFUSED, RESTLESS, ON BILATERAL SOFT WRIST RESTRAINTS, NO S/SX OF ACUTE DISTRESS AT THIS TIME. TURNED AND REPOSITIONED, KEPT COMFORTABLE, NO S/SX OF PAIN OR DISCOMFORT, CALL LIGHT WITHIN REACH, WILL CONTINUE TO MONITOR.
--- NOTE | 2017-09-30 07:45 | NUR ---
RN CLOSING NOTES PATIENT IS IN BED, NON VERBAL, RESTLESS AND AGITATED. NO SOB NOTED. RESPIRATIONS EVEN AND UNLABORED. PATIENT WITH TRACH SHILEY #[address] IV ACCESS TO AJ MIDLINE PATENT AND INTACT, NO REDNESS OR INFILTRATION NOTED. GLYTROL IS RUNNING AT 60 ML/HR. ALL NEEDS ARE MET AND MEDICATIONS GIVEN PER MD COOPER. SKIN CLEAN AND DRY, PATIENT REPOSITIONED. D/C PLANNING, AWAITING FOR BED IN SN[facility]. BED IN LOW AND LOCKED POSITION, SIDE RAILSX2. CALL LIGHT WITHIN EASY REACH. WILL ENDORSE TO RN DAY SHIFT FOR YUAN.
[2017-09-30 08:00] VITALS: BP 102/65
[2017-09-30] MEDS: LEVETIRACETAM SOL (5 ML) 100 MG/ML UDC GT SCH (08:43)
[2017-09-30] MEDS: BACLOFEN (10 MG) 10 MG TABLET GT SCH ×2 (08:43→16:50)
[2017-09-30] MEDS: SUCRALFATE 1 G/10 ML UDC GT SCH ×3 (08:43→16:50)
[2017-09-30] MEDS: PANTOPRAZOLE 40 MG VIAL IV SCH ×2 (08:43→16:50)
[2017-09-30] MEDS: ASPIRIN 81 MG TAB.CHEW GT SCH (08:43)
[2017-09-30] MEDS: GABAPENTIN 100 MG CAPSULE GT SCH ×3 (08:43→16:50)
[2017-09-30] MEDS: METOPROLOL TARTRATE 25 MG TABLET GT SCH ×2 (08:44→16:50)
[2017-09-30] MEDS: Z GUARD REMEDY 2 OZ OINT TP PRN (12:09)
[2017-09-30 16:00] VITALS: BP 197/78
[2017-09-30 16:57] VITALS: BP 181/86
[2017-09-30] MEDS ORDERED: hydrALAZINE HCL 10 MG TABLET PO ONE (17:00)
--- NOTE | 2017-09-30 17:00 | NUR ---
RN NOTES RAFAELA WINN MADE AWARE OF BP 181/86 HR 102, RECEIVED NEW ORDER FOR HYDRALAZINE 10MG GT ONCE. ORDER NOTED AND CARRIED OUT.
--- NOTE | 2017-09-30 17:35 | NUR ---
DIESEL ROLLER OPERATOR PATIENT AWAKE, NON-VERBAL, OPENS EYES, RESTLESS, PATIENT UNABLE TO UNDERSTAND DISCHARGE INSTRUCTIONS. SKIN ASSESSMENT COMPLETED, SKIN PHOTOS TAKEN. RESPIRATION EVEN AND UNLABORED, NO SOB NOTED, IN ROOM AIR WITH SPO2 OF 99%. REPORT GIVEN TO ASHUTOSH AT [phone] TO [facility]. NO BELONGINGS. AJ MIDLINE REMOVED AND APPLIED PRESSURE, GT PATENT AND INTACT, FLUSHED WITH WATER. VS STABLE BP 154/61 HR 84 T 98.8 R18 SPO2 99-100%. AMBULANCE CAME AND TRANSFERRED PATIENT TO [facility]. PATIENT LEFT ASSISTED BY [facility] ASSOCIATE.
== END 2017-09-30 17:45 | DRG 241 ==
LOC: ER 18:16 → TELE 22:51 → MED 09-16 09:08
PROVIDERS: ADMIT Internal Medicine; ATTEND Internal Medicine
DX: K25.4 Chronic or unspecified gastric ulcer with hemorrhage (principal); E43 Unspecified severe protein-calorie malnutrition; G93.41 Metabolic encephalopathy; J96.10 Chronic respiratory failure, unspecified whether with hypoxia or hypercapnia; R53.2 Functional quadriplegia; E87.0 Hyperosmolality and hypernatremia; Z93.0 Tracheostomy status; D68.59 Other primary thrombophilia; I69.859 Hemiplegia and hemiparesis following other cerebrovascular disease affecting unspecified side; F03.90 Unspecified dementia, unspecified severity, without behavioral disturbance, psychotic disturbance, mood disturbance, and anxiety; D69.6 Thrombocytopenia, unspecified; R13.10 Dysphagia, unspecified; D62 Acute posthemorrhagic anemia; G40.909 Epilepsy, unspecified, not intractable, without status epilepticus; E78.5 Hyperlipidemia, unspecified; E11.9 Type 2 diabetes mellitus without complications; Z93.1 Gastrostomy status; B86 Scabies; D63.8 Anemia in other chronic diseases classified elsewhere; E86.0 Dehydration; E87.6 Hypokalemia; Z87.11 Personal history of peptic ulcer disease; Z87.891 Personal history of nicotine dependence; Z79.4 Long term (current) use of insulin; R74.0 Nonspecific elevation of levels of transaminase and lactic acid dehydrogenase [LDH]; E88.09 Other disorders of plasma-protein metabolism, not elsewhere classified; K80.20 Calculus of gallbladder without cholecystitis without obstruction; Z68.1 Body mass index [BMI] 19.9 or less, adult; D50.0 Iron deficiency anemia secondary to blood loss (chronic); K64.8 Other hemorrhoids; K29.51 Unspecified chronic gastritis with bleeding
CPT/HCPCS: 31720; 36415; 71045-TC; 76700-TC; 80048-TC; 80053-TC; 80061-TC; 80076-TC; 82140-TC; 82150-TC; 82272-TC; 82553-TC; 82746; 82962-TC; 83540-TC; 83690-TC; 83735-TC; 84100-TC; 84443-TC; 85025-TC; 85652-TC; 85730-TC; 86850-TC; 86921-TC; 87040-TC; 87081-TC; 88305-TC; 88313-TC; 88342; 93307-TC; A4606; A6402; A6403; C9113; J1815; J1953; J2704; J3480; J3490; J7040; J7042; P9016-BL; Z7610